=== PATIENT | male | born 1945 | race African-American/Black ===

== ENCOUNTER 2017-04-29 20:58 | Inpatient (IN) | payer BC ==
[~2017-04-29] VITALS: Ht 177.8 cm; Wt 76.2 kg
[2017-04-29 21:10] VITALS: BP 142/67
--- NOTE | 2017-04-29 21:24 | Emergency Room Report ---
History of Present Illness General Chief Complaint: Fever Source: Patient, Medical Record Present Illness HPI Patient lives at an assisted living facility and was found to be hypoxic Patient reports that he feels dehydrated and feels that he's having chills Denies any chest pain as any back or flank pain Patient initially denies feeling short of breath Denies any recent vomiting or diarrhea Patient is here with a remelter who reports of the patient was doing well prior to the low oxygen finding Allergies: Coded Allergies: IODINE (Verified Allergy, Unknown, 04/29/17) PENICILLINS (Verified Allergy, Unknown, 04/29/17) Patient History Past Medical History: see triage record Pertinent Family History: none Reviewed Nursing Documentation: PMH: Agreed, PSxH: Agreed Nursing Documentation-PMH Past Medical History: No History, Except For Hx Cardiac Problems: Yes - afib, DVT Hx Cerebrovascular Accident: Yes Review of Systems All Other Systems: negative except mentioned in HPI Physical Exam Vital Signs Date Time Temp Pulse Resp B/P Pulse Ox O2 Delivery O2 Flow Rate FiO2 04/29/17 20:56 99.7 91 20 139/81 95 Nasal Cannula 4.0 Sp02 EP Interpretation: reviewed, normal General Appearance: no apparent distress Head: normocephalic, atraumatic Eyes: bilateral eye EOMI, bilateral eye PERRL ENT: hearing grossly normal, normal pharynx, TMs + canals normal, uvula midline Neck: full range of motion, supple, no meningismus, no bony tend Respiratory: no rhonchi, no respiratory distress, no retraction, no accessory muscle use, crackles - in both lower lobes Cardiovascular #1: normal peripheral pulses, no gallop, no JVD, no murmur, irregularly irregular Gastrointestinal: normal bowel sounds, non tender, soft, no mass, no organomegaly, non-distended, no guarding, no hernia, no pulsatile mass, no rebound Genitourinary: no CVA tenderness Musculoskeletal: normal inspection Neurologic: oriented x3, responsive, shirt folder III-XII nml as tested, motor strength/ tone normal, sensory intact Psychiatric: mood/affect normal Skin: palpation normal, other - Three out of four pitting edema both lower extremity Lymphatic: normal inspection, no adenopathy Medical Decision Making Diagnostic Impression: Primary Impression: CHF (congestive heart failure) Additional Impression: Dyspnea ER Course Patient is a fairly complex patient with multiple differential to consideration including but not limited to cardiac cardiopulmonary and vascular emergencies Given the patient's clinical evaluation diuretics were provided chest x-ray also shows pulmonary congestion difficult to evaluate possible infiltrate patient was also provided prostration antibiotic at this time continue to do better however does require low oxygenation to keep appropriate saturation At this time requires further inpatient care Labs Test 04/29/17 21:35 White Blood Count 8.6 K/UL (4.8-10.8) Red Blood Count 3.39 M/UL (4.70-6.10) Hemoglobin 10.1 G/DL (14.2-18.0) Hematocrit 31.5 % (42.0-52.0) Mean Corpuscular Volume 93 FL (80-99) Mean Corpuscular Hemoglobin 29.7 PG (27.0-31.0) Mean Corpuscular Hemoglobin Concent 32.0 G/DL (32.0-36.0) Red Cell Distribution Width 16.0 % (11.6-14.8) Platelet Count 250 K/UL (150-450) Mean Platelet Volume 5.4 FL (6.5-10.1) Neutrophils (%) (Auto) 60.0 % (45.0-75.0) Lymphocytes (%) (Auto) 12.0 % (20.0-45.0) Monocytes (%) (Auto) 17.9 % (1.0-10.0) Eosinophils (%) (Auto) 6.4 % (0.0-3.0) Basophils (%) (Auto) 3.7 % (0.0-2.0) Urine Color Pale yellow Urine Appearance Clear Urine pH 5 (4.5-8.0) Urine Specific [place] 1.020 (1.005-1.035) Urine Protein 2+ (NEGATIVE) Urine Glucose (UA) Negative (NEGATIVE) Urine Ketones Negative (NEGATIVE) Urine Occult Blood 4+ (NEGATIVE) Urine Nitrite Negative (NEGATIVE) Urine Bilirubin Negative (NEGATIVE) Urine Urobilinogen Normal MG/DL (0.0-1.0) Urine Leukocyte Esterase 2+ (NEGATIVE) Urine RBC 5-10 /HPF (0 - 0) Urine WBC 5-10 /HPF (0 - 0) Urine Squamous Epithelial Cells None /LPF (NONE/OCC) Urine Amorphous Sediment Few /LPF (NONE) Urine Bacteria Moderate /HPF (NONE) Urine Yeast Few /HPF (NONE) Sodium Level 139 mEQ/L (135-145) Potassium Level 5.1 mEQ/L (3.4-4.9) Chloride Level 97 mEQ/L (98-107) Carbon Dioxide Level 28 mEQ/L (20-30) Anion Gap 14 (5-15) Blood Urea Nitrogen 15 mg/dL (7-23) Creatinine 0.8 mg/dL (0.7-1.2) Estimat Glomerular Filtration Rate mL/min (>60) Glucose Level 127 mg/dL (74-106) Lactic Acid Level 1.30 mmol/L (0.66-2.22) Calcium Level 9.4 mg/dL (8.6-10.2) Total Bilirubin 0.6 mg/dL (0.0-1.2) Aspartate Amino Transf (AST/SGOT) 22 U/L (5-40) Alanine Aminotransferase (ALT/SGPT) 21 U/L (3-41) Alkaline Phosphatase 108 U/L (40-129) Total Creatine Kinase 36 U/L (38-174) Creatine Kinase MB 2.6 ng/mL (< 6.7) Creatine Kinase MB Relative Index 7.2 Troponin I < 0.30 ng/mL (<=0.30) Pro-B-Type Natriuretic Peptide 7536 pg/mL (0-125) Total Protein 6.7 g/dL (6.6-8.7) Albumin 3.4 g/dL (3.5-5.2) Globulin 3.3 g/dL Albumin/Globulin Ratio 1.0 (1.0-2.7) Lipase 31 U/L (< 60) EKG Diagnostic Results Rate: normal Rhythm: other - a fib ST Segments: other - Nonspecific ST and T-wave changes Rhythm Strip Diag. Results EP Interpretation: yes Rate: 80 Rhythm: no PVC's, no ectopy, other - afib Chest X-Ray Diagnostic Results Chest X-Ray Ordered: Yes # of Views/Limited/Complete: 1 View Interpretation: no consolidation, no pneumothorax, other - Cardiomegaly, bilateral pulmonary congestion pacemaker Indication: Shortness of Breath Impression: Other - pulmonary congestion Date Electronically Signed: Apr 29, 2017 Time Electronically Signed: 21:50 Interpreting ER Physician: Dr davidson Last Vital Signs Date Time Temp Pulse Resp B/P Pulse Ox O2 Delivery O2 Flow Rate FiO2 04/29/17 20:56 99.7 91 20 139/81 95 Nasal Cannula 4.0 Status: improved Disposition: ADMITTED INPATIENT Condition: Serious JUSTIN DAVIDSON D.O. Apr 29, 2017 21:24
[2017-04-29 22:13] LABS: APPEARANCE,URINE CLEAR; BASOPHILS % (AUTO) 3.7 % (0.0-2.0); EOSINOPHILS % (AUTO) 6.4 % (0.0-3.0); KETONES,URINE NEGATIVE (NEGATIVE); LEUKOCYTE ESTERASE ,URINE 2+ (NEGATIVE); MEAN CORPUSCULAR HEMOGLOBIN 29.7 PG (27.0-31.0); MEAN CORPUSCULAR VOLUME 93 FL (80-99); MEAN PLATELET VOLUME 5.4 FL (6.5-10.1); MONOCYTES % (AUTO) 17.9 % (1.0-10.0); NITRITE,URINE NEGATIVE (NEGATIVE); PH,URINE 5 (4.5-8.0); PLATELET COUNT 250 K/UL (150-450); PROTEIN,URINE 2+ (NEGATIVE); RED BLOOD COUNT 3.39 M/UL (4.70-6.10); UROBILINOGEN,URINE NORMAL MG/DL (0.0-1.0); WHITE BLOOD COUNT 8.6 K/UL (4.8-10.8)
[2017-04-29 22:27] LABS: AMORPHOUS SEDIMENT,UR FEW /LPF; BACTERIA,URINE MODERATE /HPF; YEAST,URINE FEW /HPF
[2017-04-29 22:30] LABS: ALANINE AMINOTRANSFERASE 21 U/L (3-41); ANION GAP 14 (5-15); ASPARTATE AMINO TRANSFERASE 22 U/L (5-40); CALCIUM 9.4 mg/dL (8.6-10.2); CARBON DIOXIDE 28 mEQ/L (20-30); CHLORIDE 97 mEQ/L (98-107); CREATININE 0.8 mg/dL (0.7-1.2); HEMOLYSIS 63; LIPASE 31 U/L (< 60); POTASSIUM 5.1 mEQ/L (3.4-4.9); SODIUM 139 mEQ/L (135-145); TOTAL PROTEIN 6.7 g/dL (6.6-8.7); TROPONIN I < 0.30 ng/mL (<=0.30)
[2017-04-29] MEDS ORDERED: Promethazine/Codeine 5ml UD ORAL PRN (22:45)
[2017-04-29] MEDS ORDERED: Mylanta II UD 30ml ORAL PRN (22:45)
[2017-04-29] MEDS ORDERED: Nitroglycerin Subl 0.4mg tab (Bottle Of 25) SL PRN (22:45)
[2017-04-29] MEDS ORDERED: Miralax 17gm pkt ORAL PRN (22:45)
[2017-04-29] MEDS ORDERED: SPIRIVA18 MCG INH (22:46)
[2017-04-29] MEDS ORDERED: LEVOTHYROXINE150 MCG ORAL (22:46)
[2017-04-29] MEDS ORDERED: MILK OF MA2400 MG/10 ORAL (22:46)
[2017-04-29] MEDS ORDERED: ELIQUIS5 MG PO (22:46)
[2017-04-29] MEDS ORDERED: ZESTRIL10 M1 ORAL (22:46)
[2017-04-29] MEDS ORDERED: TYLENOL EXTRA500 MG ORAL (22:46)
[2017-04-29] MEDS ORDERED: DUONEB 0.5-3(2.53 ML HHN (22:46)
[2017-04-29] MEDS ORDERED: FLOMAX0.4 MG ORAL (22:46)
[2017-04-29] MEDS ORDERED: ATORVASTATIN CA80 MG ORAL (22:46)
[2017-04-29] MEDS ORDERED: CARVEDILOL6.25 MG ORAL (22:46)
[2017-04-29] MEDS ORDERED: SENOKOT8.6 MG PO (22:46)
[2017-04-29] MEDS ORDERED: ZYPREXA2.5 MG ORAL (22:46)
[2017-04-29] MEDS ORDERED: BETHANECHOL CHL25 MG ORAL (22:46)
[2017-04-29] MEDS ORDERED: PROSCAR5 MG ORAL (22:46)
[2017-04-29] MEDS ORDERED: QUETIAPINE FUMA50 MG ORAL (22:46)
[2017-04-29] MEDS ORDERED: IBUPROFEN600 MG ORAL (22:46)
[2017-04-29] MEDS ORDERED: DIGOXIN125 MCG ORAL (22:46)
[2017-04-29 23:00] LABS: CKMB 2.6 ng/mL (< 6.7)
[2017-04-29 23:10] VITALS: BP 129/58
[2017-04-30] VITALS (8 sets, daily range): BP systolic 99–135; BP diastolic 45–81
[2017-04-30] MEDS: Vancomycin 1.5 GM in D5W 325 ML IVPB SCH ×2 (02:31→16:20)
[2017-04-30] MEDS: Aztreonam Inj 1 GM in NS 55 ML IVPB SCH ×3 (06:35→22:32)
[2017-04-30 07:34] LABS: MEAN CORPUSCULAR HEMOGLOBIN 29.4 PG (27.0-31.0); MEAN CORPUSCULAR HGB CONC 32.2 G/DL (32.0-36.0); MEAN CORPUSCULAR VOLUME 91 FL (80-99); MEAN PLATELET VOLUME 6.1 FL (6.5-10.1); PLATELET COUNT 263 K/UL (150-450); RED BLOOD COUNT 3.23 M/UL (4.70-6.10); RED CELL DISTRIBUTION WIDTH 16.3 % (11.6-14.8); WHITE BLOOD COUNT 8.4 K/UL (4.8-10.8)
[2017-04-30 07:46] LABS: ALANINE AMINOTRANSFERASE 16 U/L (3-41); ALBUMIN/GLOBULIN RATIO 1.1 (1.0-2.7); ANION GAP 10 (5-15); ASPARTATE AMINO TRANSFERASE 15 U/L (5-40); CALCIUM 9.2 mg/dL (8.6-10.2); CARBON DIOXIDE 32 mEQ/L (20-30); CHLORIDE 97 mEQ/L (98-107); CREATININE 0.8 mg/dL (0.7-1.2); HEMOLYSIS 0; PHOSPHORUS 4.6 mg/dL (2.5-4.8); POTASSIUM 3.8 mEQ/L (3.4-4.9); SODIUM 139 mEQ/L (135-145); TOTAL PROTEIN 6.1 g/dL (6.6-8.7)
[2017-04-30 08:58] LABS: ANISOCYTOSIS 1+; BAND NEUTROPHILS % (MANUAL) 0 % (0-8); BASOPHILS % (MANUAL) 0 % (0-2); EOSINOPHILS % (MANUAL) 9 % (0-3); HYPOCHROMASIA 2+; LYMPHOCYTES % (MANUAL) 12 % (20-45); NEUTROPHILS % (MANUAL) 64 % (45-75); PLATELET ESTIMATE ADEQUATE; PLATELET MORPHOLOGY NORMAL; TOTAL CELLS COUNTED 100
[2017-04-30] MEDS ORDERED: Heparin 5000 units/ml inj SUBQ SCH (09:00)
--- NOTE | 2017-04-30 12:00 | Diagnostic Imaging Report ---
Indications: Chest pain Technique: Portable AP chest Findings: Comparison: None Cardiac silhouette upper limits of normal in size. Suggestion of mild pulmonary vascular redistribution. Interstitial markings mildly increased throughout both lungs. No pleural abnormality detected. Left chest wall pacemaker. Focal contour deformity lateral aspect left fifth rib. Cephalad subluxation right humerus narrowing the subacromial space. Right glenohumeral joint narrowed with marginal osteophyte formation. IMPRESSION: Bilateral interstitial disease, nonspecific, acuity indeterminate. An element of pulmonary edema in the setting of congestive heart failure must be considered. Correlate clinically. Borderline cardiomegaly with pacemaker Left fifth rib contour deformity likely chronic posttraumatic Right glenohumeral degenerative arthropathy Chronic insufficiency right rotator cuff
--- NOTE | 2017-04-30 12:32 | History and Physical ---
History of Present Illness General Date patient seen: Apr 30, 2017 Reason for Hospitalization: Fever Present Illness HPI 71 year old male with hx of CAD, pacemaker, CVA, dementia, Asthma living at an assisted living facility was found to be hypoxic. He has been coughing and had fever. His pulse oximeter was low at assisted living and he was brought in for further evaluation. He was found to have sepsis and hypoxemia and admitted to telemetry for further evaluation. Allergies: Coded Allergies: IODINE (Verified Allergy, Unknown, 04/29/17) PENICILLINS (Verified Allergy, Unknown, 04/29/17) Medication History Scheduled Atorvastatin Calcium* (Lipitor*), 80 MG ORAL BEDTIME, (Reported) Bethanechol Chl* (Bethanechol Chloride*), 25 MG ORAL THREE TIMES A DAY, ( Reported) Carvedilol* (Carvedilol*), 6.25 MG ORAL EVERY 12 HOURS, (Reported) Digoxin* (Digoxin*), 125 MCG ORAL DAILY, (Reported) Finasteride* (Proscar*), 5 MG ORAL DAILY, (Reported) Ibuprofen* (Motrin*), 400 MG ORAL FOUR TIMES A DAY, (Reported) Levothyroxine Sodium* (Levothyroxine Sodium*), 150 MCG ORAL DAILY, (Reported) Lisinopril* (Zestril*), 10 MG ORAL DAILY, (Reported) Magnesium Hydroxide* (Milk Of Magnesia*), 30 ML ORAL DAILY, (Reported) Olanzapine* (Zyprexa*), 2.5 MG ORAL DAILY, (Reported) Quetiapine Fumarate* (Quetiapine Fumarate*), 25 MG ORAL DAILY, (Reported) Tamsulosin HCl (Flomax), 0.4 MG ORAL DAILY, (Reported) Tiotropium [place]* (Spiriva*), 1 PUFF INH DAILY, (Reported) Scheduled PRN Acetaminophen* (Tylenol Extra Strength*), 500 MG ORAL Q6H PRN for Mild Pain/ Temp > 100.5, (Reported) Miscellaneous Medications Apixaban (Eliquis), 5 MG PO, (Reported) Ipratropium/Albuterol Sulfate (DuoNeb 0.5-3(2.5)mg/3ml), 3 ML HHN, (Reported) Sennosides (Senokot), 8.6 MG PO, (Reported) Patient History Healthcare decision maker Resuscitation status Full Code Advanced Directive on File Yes Past Medical/Surgical History Past Medical/Surgical History: (1) Pacemaker (2) BPH (benign prostatic hyperplasia) (3) CAD (coronary artery disease) (4) Cardiomyopathy (5) CHF (congestive heart failure) Review of Systems Constitutional: Reports: fever Respiratory: Reports: cough, shortness of breath All Other Systems: negative except mentioned in HPI Physical Exam General Appearance: WD/WN Lines, tubes and drains: peripheral HEENT: normocephalic, atraumatic Neck: non-tender, normal alignment Respiratory/Chest: chest wall non-tender, lungs clear Cardiovascular/Chest: normal peripheral pulses Abdomen: normal bowel sounds Genitourinary/Rectal: normal genital exam Extremities: trace edema Last 24 Hour Vital Signs Date Time Temp Pulse Resp B/P Pulse Ox O2 Delivery O2 Flow Rate FiO2 04/30/17 11:45 98.1 85 20 135/81 96 Nasal Cannula 4.0 04/30/17 08:30 97.0 77 22 103/45 99 Nasal Cannula 4.0 04/30/17 08:00 76 04/30/17 07:54 95 Nasal Cannula 4.0 04/30/17 07:52 Nasal Cannula 4.0 04/30/17 07:48 69 22 Nasal Cannula 4.0 04/30/17 04:08 98.2 73 19 117/61 94 Nasal Cannula 4.0 04/30/17 04:00 87 04/30/17 01:26 80 04/30/17 01:21 97.9 71 19 128/58 96 Nasal Cannula 4.0 04/30/17 01:00 97.7 78 22 125/69 100 Room Air 4.0 04/30/17 01:00 99.9 78 22 125/69 99 Nasal Cannula 4.0 04/30/17 00:59 60 18 Room Air 04/29/17 23:10 99.9 79 24 129/58 99 Nasal Cannula 4.0 04/29/17 21:10 99.9 76 28 142/67 99 4.0 04/29/17 20:56 99.7 91 20 139/81 95 Nasal Cannula 4.0 Intake and Output 04/29/17 04/30/17 19:00 07:00 Intake Total 715.0 ml Output Total 900 ml Balance -185.0 ml Intake Oral 240 ml IV Total 475.0 ml Output Urine Total 900 ml # Voids 1 Laboratory Tests Test 04/29/17 21:35 04/30/17 06:30 White Blood Count 8.6 K/UL (4.8-10.8) 8.4 K/UL (4.8-10.8) Red Blood Count 3.39 M/UL (4.70-6.10) L 3.23 M/UL (4.70-6.10) L Hemoglobin 10.1 G/DL (14.2-18.0) L 9.5 G/DL (14.2-18.0) L Hematocrit 31.5 % (42.0-52.0) L 29.5 % (42.0-52.0) L Mean Corpuscular Volume 93 FL (80-99) 91 FL (80-99) Mean Corpuscular Hemoglobin 29.7 PG (27.0-31.0) 29.4 PG (27.0-31.0) Mean Corpuscular Hemoglobin Concent 32.0 G/DL (32.0-36.0) 32.2 G/DL (32.0-36.0) Red Cell Distribution Width 16.0 % (11.6-14.8) H 16.3 % (11.6-14.8) H Platelet Count 250 K/UL (150-450) 263 K/UL (150-450) Mean Platelet Volume 5.4 FL (6.5-10.1) L 6.1 FL (6.5-10.1) L Neutrophils (%) (Auto) 60.0 % (45.0-75.0) % (45.0-75.0) Lymphocytes (%) (Auto) 12.0 % (20.0-45.0) L % (20.0-45.0) Monocytes (%) (Auto) 17.9 % (1.0-10.0) H % (1.0-10.0) Eosinophils (%) (Auto) 6.4 % (0.0-3.0) H % (0.0-3.0) Basophils (%) (Auto) 3.7 % (0.0-2.0) H % (0.0-2.0) Urine Color Pale yellow Urine Appearance Clear Urine pH 5 (4.5-8.0) Urine Specific [place] 1.020 (1.005-1.035) Urine Protein 2+ (NEGATIVE) H Urine Glucose (UA) Negative (NEGATIVE) Urine Ketones Negative (NEGATIVE) Urine Occult Blood 4+ (NEGATIVE) H Urine Nitrite Negative (NEGATIVE) Urine Bilirubin Negative (NEGATIVE) Urine Urobilinogen Normal MG/DL (0.0-1.0) Urine Leukocyte Esterase 2+ (NEGATIVE) H Urine RBC 5-10 /HPF (0 - 0) H Urine WBC 5-10 /HPF (0 - 0) H Urine Squamous Epithelial Cells None /LPF (NONE/OCC) Urine Amorphous Sediment Few /LPF (NONE) H Urine Bacteria Moderate /HPF (NONE) H Urine Yeast Few /HPF (NONE) H Sodium Level 139 mEQ/L (135-145) 139 mEQ/L (135-145) Potassium Level 5.1 mEQ/L (3.4-4.9) H 3.8 mEQ/L (3.4-4.9) Chloride Level 97 mEQ/L (98-107) L 97 mEQ/L (98-107) L Carbon Dioxide Level 28 mEQ/L (20-30) 32 mEQ/L (20-30) H Anion Gap 14 (5-15) 10 (5-15) Blood Urea Nitrogen 15 mg/dL (7-23) 15 mg/dL (7-23) Creatinine 0.8 mg/dL (0.7-1.2) 0.8 mg/dL (0.7-1.2) Estimat Glomerular Filtration Rate mL/min (>60) mL/min (>60) Glucose Level 127 mg/dL (74-106) H 117 mg/dL (74-106) H Lactic Acid Level 1.30 mmol/L (0.66-2.22) Calcium Level 9.4 mg/dL (8.6-10.2) 9.2 mg/dL (8.6-10.2) Total Bilirubin 0.6 mg/dL (0.0-1.2) 0.6 mg/dL (0.0-1.2) Aspartate Amino Transf (AST/SGOT) 22 U/L (5-40) 15 U/L (5-40) Alanine Aminotransferase (ALT/SGPT) 21 U/L (3-41) 16 U/L (3-41) Alkaline Phosphatase 108 U/L (40-129) 97 U/L (40-129) Total Creatine Kinase 36 U/L (38-174) L Creatine Kinase MB 2.6 ng/mL (< 6.7) Creatine Kinase MB Relative Index 7.2 Troponin I < 0.30 ng/mL (<=0.30) Pro-B-Type Natriuretic Peptide 7536 pg/mL (0-125) H 6502 pg/mL (0-125) H Total Protein 6.7 g/dL (6.6-8.7) 6.1 g/dL (6.6-8.7) L Albumin 3.4 g/dL (3.5-5.2) L 3.3 g/dL (3.5-5.2) L Globulin 3.3 g/dL 2.8 g/dL Albumin/Globulin Ratio 1.0 (1.0-2.7) 1.1 (1.0-2.7) Lipase 31 U/L (< 60) Urine Legionella Antigen Pending Differential Total Cells Counted 100 Neutrophils % (Manual) 64 % (45-75) Lymphocytes % (Manual) 12 % (20-45) L Monocytes % (Manual) 15 % (1-10) H Eosinophils % (Manual) 9 % (0-3) H Basophils % (Manual) 0 % (0-2) Band Neutrophils 0 % (0-8) Platelet Estimate Adequate Platelet Morphology Normal Hypochromasia 2+ Anisocytosis 1+ Phosphorus Level 4.6 mg/dL (2.5-4.8) Microbiology Date/Time Source Procedure Growth Status 04/30/17 01:20 Wrist Right Gram Stain - Final Resulted 04/30/17 01:20 Wrist Right Wound Culture Pending Resulted Height (Feet): 5 Height (Inches): 10.00 Weight (Pounds): 176 Medications Current Medications Medications (Trade) Dose Ordered Sig/Lakesha Route PRN Reason Start Time Stop Time Status Last Admin Dose Admin Acetaminophen (Tylenol) 650 mg Q4H PRN ORAL fever 04/29/17 22:45 05/29/17 22:44 Al Hydroxide/Mg Hydroxide (Mylanta II) 30 ml Q6H PRN ORAL dyspepsia 04/29/17 22:45 05/29/17 22:44 Albuterol/ Ipratropium (DuoNeb 0.5-3(2.5)mg/3ml) 3 ml EVERY 4 HOURS PRN HHN Shortness of Breath 04/29/17 22:45 05/04/17 22:44 Apixaban (Eliquis) 2.5 mg BID ORAL 04/30/17 18:00 05/30/17 17:59 UNV Atorvastatin Calcium (Lipitor) 80 mg BEDTIME ORAL 04/30/17 21:00 05/30/17 20:59 UNV Aztreonam/Sodium Chloride (Azactam/Sodium Chloride) 55 ml @ 110 mls/hr EVERY 8 HOURS IVPB 04/30/17 06:00 05/07/17 05:59 04/30/17 06:35 Carvedilol (Coreg) 6.25 mg EVERY 12 HOURS ORAL 04/30/17 21:00 05/30/17 20:59 UNV Digoxin (Lanoxin) 0.125 mg DAILY ORAL 05/01/17 09:00 05/31/17 08:59 UNV Finasteride (Proscar) 5 mg DAILY ORAL 05/01/17 09:00 05/31/17 08:59 UNV Levothyroxine Sodium (Synthroid) 150 mcg DAILY ORAL 05/01/17 09:00 05/31/17 08:59 UNV Lisinopril (Prinivil) 10 mg DAILY ORAL 05/01/17 09:00 05/31/17 08:59 UNV Nitroglycerin (Ntg) 0.4 mg Q5M PRN SL Prn Chest Pain 04/29/17 22:45 05/29/17 22:44 Olanzapine (ZyPREXA) 2.5 mg DAILY ORAL 05/01/17 09:00 05/31/17 08:59 UNV Ondansetron HCl (Zofran) 4 mg Q6H PRN IVP Nausea & Vomiting 04/29/17 22:45 05/29/17 22:44 Polyethylene Glycol (Miralax) 17 gm DAILYPRN PRN ORAL Constipation 04/29/17 22:45 05/29/17 22:44 Promethazine HCl/ Codeine (Phenergan with Codeine) 5 ml Q4H PRN ORAL For Cough 04/29/17 22:45 05/29/17 22:44 Quetiapine Fumarate (SEROquel) 25 mg DAILY ORAL 05/01/17 09:00 05/31/17 08:59 UNV Sennosides (Senokot) 8.6 mg DAILY ORAL 05/01/17 09:00 05/31/17 08:59 UNV Tamsulosin HCl (Flomax) 0.4 mg DAILY ORAL 05/01/17 09:00 05/31/17 08:59 UNV Temazepam 15 mg 15 mg HSPRN PRN ORAL Insomnia 04/29/17 22:45 05/06/17 22:44 Vancomycin HCl 1 ea 1 ea DAILY PRN MISC Per rx protocol 04/29/17 22:45 05/29/17 22:44 Vancomycin HCl/ Dextrose (Vancomycin/D5W) 325 ml @ 162.5 mls/ hr Q12H IVPB 04/30/17 02:00 05/05/17 01:59 04/30/17 02:31 Assessment/Plan Problem List: (1) Sepsis ICD Codes: A41.9 - Sepsis, unspecified organism SNOMED: 08454036 (2) Acute encephalopathy ICD Codes: G93.40 - Encephalopathy, unspecified SNOMED: 7848017 (3) Aspiration pneumonia ICD Codes: J69.0 - Pneumonitis due to inhalation of food and vomit SNOMED: 633741808 (4) Cardiomyopathy ICD Codes: I42.9 - Cardiomyopathy, unspecified SNOMED: 42286350 (5) CAD (coronary artery disease) ICD Codes: I25.10 - Atherosclerotic heart disease of [place] coronary artery without angina pectoris SNOMED: 54045089 (6) CHF (congestive heart failure) ICD Codes: I50.9 - Heart failure, unspecified SNOMED: 94584058 (7) BPH (benign prostatic hyperplasia) ICD Codes: N40.0 - Benign prostatic hyperplasia without lower urinary tract symptoms SNOMED: 589724970, 795187898 (8) Pacemaker ICD Codes: Z95.0 - Presence of cardiac pacemaker SNOMED: 687664729, 399777095 (9) Anemia ICD Codes: D64.9 - Anemia, unspecified SNOMED: 587017630 (10) Dementia ICD Codes: F03.90 - Unspecified dementia without behavioral disturbance SNOMED: 63522342 Assessment/Plan check sputum, culutres iv abx. PCN allergy f/fu labs anemia w/u cardio to see doppler of legs wound care psych evaluation MELISSA ANDERSON Apr 30, 2017 12:32
--- NOTE | 2017-04-30 13:00 | Consultation ---
Consult Note Consult Note [id number] JEFFREY GERARD M.D. Apr 30, 2017 13:00
[2017-04-30] MEDS: Digoxin 0.125mg tab ORAL SCH (14:47)
[2017-04-30] MEDS ORDERED: NS 55ml IV ONE (15:55)
--- NOTE | 2017-04-30 16:27 | Cardiology Progress Note ---
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% (9% scar , 9% viable ischemic) extensive ca clcifiaction hs to tobacco use do afib perm on anticoagu with eliquis dementia hx iodien pen allergy copd s/p recent sepsis diurtic afterlaod prelaod reduction anticoagualtion with eliqauis dose may need to be adjsuted nwo with noral renal fucntion previoulsy not had cath for severl reason one of [facility] was renal insuf now with normal renal fucntion may need to reconsider near [facility] [id number] Objective Last 24 Hour Vital Signs Date Time Temp Pulse Resp B/P Pulse Ox O2 Delivery O2 Flow Rate FiO2 04/30/17 15:40 97.3 69 20 99/50 97 Nasal Cannula 4.0 04/30/17 14:47 85 04/30/17 12:00 87 04/30/17 11:45 98.1 85 20 135/81 96 Nasal Cannula 4.0 04/30/17 08:30 97.0 77 22 103/45 99 Nasal Cannula 4.0 04/30/17 08:00 76 04/30/17 07:54 95 Nasal Cannula 4.0 04/30/17 07:52 Nasal Cannula 4.0 04/30/17 07:48 69 22 Nasal Cannula 4.0 04/30/17 04:08 98.2 73 19 117/61 94 Nasal Cannula 4.0 04/30/17 04:00 87 04/30/17 01:26 80 04/30/17 01:21 97.9 71 19 128/58 96 Nasal Cannula 4.0 04/30/17 01:00 97.7 78 22 125/69 100 Room Air 4.0 04/30/17 01:00 99.9 78 22 125/69 99 Nasal Cannula 4.0 04/30/17 00:59 60 18 Room Air 04/29/17 23:10 99.9 79 24 129/58 99 Nasal Cannula 4.0 04/29/17 21:10 99.9 76 28 142/67 99 4.0 04/29/17 20:56 99.7 91 20 139/81 95 Nasal Cannula 4.0 Intake and Output 04/29/17 04/30/17 19:00 07:00 Intake Total 715.0 ml Output Total 900 ml Balance -185.0 ml Intake Oral 240 ml IV Total 475.0 ml Output Urine Total 900 ml # Voids 1 Laboratory Tests Test 04/29/17 21:35 04/30/17 06:30 White Blood Count 8.6 K/UL (4.8-10.8) 8.4 K/UL (4.8-10.8) Red Blood Count 3.39 M/UL (4.70-6.10) L 3.23 M/UL (4.70-6.10) L Hemoglobin 10.1 G/DL (14.2-18.0) L 9.5 G/DL (14.2-18.0) L Hematocrit 31.5 % (42.0-52.0) L 29.5 % (42.0-52.0) L Mean Corpuscular Volume 93 FL (80-99) 91 FL (80-99) Mean Corpuscular Hemoglobin 29.7 PG (27.0-31.0) 29.4 PG (27.0-31.0) Mean Corpuscular Hemoglobin Concent 32.0 G/DL (32.0-36.0) 32.2 G/DL (32.0-36.0) Red Cell Distribution Width 16.0 % (11.6-14.8) H 16.3 % (11.6-14.8) H Platelet Count 250 K/UL (150-450) 263 K/UL (150-450) Mean Platelet Volume 5.4 FL (6.5-10.1) L 6.1 FL (6.5-10.1) L Neutrophils (%) (Auto) 60.0 % (45.0-75.0) % (45.0-75.0) Lymphocytes (%) (Auto) 12.0 % (20.0-45.0) L % (20.0-45.0) Monocytes (%) (Auto) 17.9 % (1.0-10.0) H % (1.0-10.0) Eosinophils (%) (Auto) 6.4 % (0.0-3.0) H % (0.0-3.0) Basophils (%) (Auto) 3.7 % (0.0-2.0) H % (0.0-2.0) Urine Color Pale yellow Urine Appearance Clear Urine pH 5 (4.5-8.0) Urine Specific [place] 1.020 (1.005-1.035) Urine Protein 2+ (NEGATIVE) H Urine Glucose (UA) Negative (NEGATIVE) Urine Ketones Negative (NEGATIVE) Urine Occult Blood 4+ (NEGATIVE) H Urine Nitrite Negative (NEGATIVE) Urine Bilirubin Negative (NEGATIVE) Urine Urobilinogen Normal MG/DL (0.0-1.0) Urine Leukocyte Esterase 2+ (NEGATIVE) H Urine RBC 5-10 /HPF (0 - 0) H Urine WBC 5-10 /HPF (0 - 0) H Urine Squamous Epithelial Cells None /LPF (NONE/OCC) Urine Amorphous Sediment Few /LPF (NONE) H Urine Bacteria Moderate /HPF (NONE) H Urine Yeast Few /HPF (NONE) H Sodium Level 139 mEQ/L (135-145) 139 mEQ/L (135-145) Potassium Level 5.1 mEQ/L (3.4-4.9) H 3.8 mEQ/L (3.4-4.9) Chloride Level 97 mEQ/L (98-107) L 97 mEQ/L (98-107) L Carbon Dioxide Level 28 mEQ/L (20-30) 32 mEQ/L (20-30) H Anion Gap 14 (5-15) 10 (5-15) Blood Urea Nitrogen 15 mg/dL (7-23) 15 mg/dL (7-23) Creatinine 0.8 mg/dL (0.7-1.2) 0.8 mg/dL (0.7-1.2) Estimat Glomerular Filtration Rate mL/min (>60) mL/min (>60) Glucose Level 127 mg/dL (74-106) H 117 mg/dL (74-106) H Lactic Acid Level 1.30 mmol/L (0.66-2.22) Calcium Level 9.4 mg/dL (8.6-10.2) 9.2 mg/dL (8.6-10.2) Total Bilirubin 0.6 mg/dL (0.0-1.2) 0.6 mg/dL (0.0-1.2) Aspartate Amino Transf (AST/SGOT) 22 U/L (5-40) 15 U/L (5-40) Alanine Aminotransferase (ALT/SGPT) 21 U/L (3-41) 16 U/L (3-41) Alkaline Phosphatase 108 U/L (40-129) 97 U/L (40-129) Total Creatine Kinase 36 U/L (38-174) L Creatine Kinase MB 2.6 ng/mL (< 6.7) Creatine Kinase MB Relative Index 7.2 Troponin I < 0.30 ng/mL (<=0.30) Pro-B-Type Natriuretic Peptide 7536 pg/mL (0-125) H 6502 pg/mL (0-125) H Total Protein 6.7 g/dL (6.6-8.7) 6.1 g/dL (6.6-8.7) L Albumin 3.4 g/dL (3.5-5.2) L 3.3 g/dL (3.5-5.2) L Globulin 3.3 g/dL 2.8 g/dL Albumin/Globulin Ratio 1.0 (1.0-2.7) 1.1 (1.0-2.7) Lipase 31 U/L (< 60) Urine Legionella Antigen Pending Differential Total Cells Counted 100 Neutrophils % (Manual) 64 % (45-75) Lymphocytes % (Manual) 12 % (20-45) L Monocytes % (Manual) 15 % (1-10) H Eosinophils % (Manual) 9 % (0-3) H Basophils % (Manual) 0 % (0-2) Band Neutrophils 0 % (0-8) Platelet Estimate Adequate Platelet Morphology Normal Hypochromasia 2+ Anisocytosis 1+ Phosphorus Level 4.6 mg/dL (2.5-4.8) Microbiology Date/Time Source Procedure Growth Status 04/30/17 01:20 Wrist Right Gram Stain - Final Resulted 04/30/17 01:20 Wrist Right Wound Culture Pending Resulted JAMES WRIGHT 13, 2017 16:27
[2017-04-30] MEDS ORDERED: Eliquis 2.5mg tablet ORAL SCH (18:00)
--- NOTE | 2017-04-30 19:00 | Consultation ---
DATE OF CONSULTATION: 04/30/2017 CONSULTING PHYSICIAN: Todd Miller M.D REFERRING PHYSICIAN: Alden Alvarez M.D. REASON FOR CONSULTATION: Evaluation of the patient for sepsis, pneumonia, antibiotic management. HISTORY OF PRESENT ILLNESS: The patient is a 71-year-old male with multiple medical problems who is a poor historian overall was admitted to this medical center due to shortness of breath. The patient was admitted to [facility] recently and there the patient had urinary obstruction requiring Ashraf catheter placement. The patient has been admitted to this medical center for shortness of breath. The patient denies having significant cough; however, again the patient as mentioned not able to provide detailed information. PAST MEDICAL HISTORY: 1. History of CVA. 2. Dementia. 3. History of urinary obstruction. 4. History of Ashraf catheter placement, this about two weeks ago. ALLERGIES: Iodine and penicillin. FAMILY HISTORY: Unavailable. REVIEW OF SYSTEMS: Limited. Much information I was able to get as mentioned above. MEDICATIONS: IV aztreonam and vancomycin. The patient received one dose of Levaquin in the emergency room. PHYSICAL EXAMINATION: VITAL SIGNS: Temperature 98 degrees, blood pressure 135/85, pulse 86, and respiratory rate 18. HEENT: Mild pale conjunctivae. No icterus. NECK: No lymphadenopathy. CHEST: Coarse breathing sounds. HEART: S1 and S2. ABDOMEN: Soft and obese. It is nontender. EXTREMITIES: No cyanosis of the extremity. The patient has bilateral lower extremity cellulitis, mild to moderate. NEUROLOGIC: He is awake. LABORATORY DATA: White blood cells 8.4, hemoglobin 9.5, and platelets 265,000. UA shows 5 to 10 white blood cells, BUN 15, and creatinine 0.8. Liver function tests unremarkable. Wound culture is pending. Chest x-ray showed bilateral interstitial disease. Pulmonary edema. ASSESSMENT: The patient is a 71-year-old male with multiple medical problems as described above. Also, the patient has, 1. Bilateral lower extremity cellulitis. 2. Probable pneumonia. 3. Anemia. 4. Probable congestive heart failure. 5. Rule out urinary tract infection. PLAN: 1. We will continue the patient on aztreonam and vancomycin. 2. Monitor CBC. 3. Monitor BMP. 4. Monitor cultures, blood and urine. 5. Monitor chest x-ray. 6. Based on the patient's clinical course and labs, we will do further recommendations. Thank you, Dr. Alvarez, for allowing me to participate in the care of this patient. I will follow the patient with you during this hospitalization. Todd Miller M.D. DR: STEFFANY JOB#: [id number] CC:
[2017-04-30] MEDS: Atorvastatin 80mg tab ORAL SCH (20:35)
[2017-04-30] MEDS: Carvedilol 6.25mg Tab ORAL SCH (20:36)
[2017-04-30] MEDS: Eliquis 2.5mg tablet ORAL SCH (20:37)
--- NOTE | 2017-04-30 22:48 | Wound Care Consultation ---
Wound Assessment Wound Assessment : Wound Present on Admission: Yes New Wound: No Status Change of Wound: No Wound Location Body Site Modif: left, lower Wound Location Body Site: leg - and knee with scattered wounds with dry scab Wound Type: lesion-etiology unknown Tatyana Test: Does not Tatyana Percent of Wound Purple/Maroon: 100 Wound Drainage Amount: None Wound Drainage Odor: None/Absent Tissue Surrounding Wound: Intact Wound General Appearance: Reddened Wound Comment #1 Left lower leg and knee wounds with scab etiology unknown Recommendation -Local wound care with skin barrier film and cover with bordered gauze daily and PRN soiled/dislodged -Keep clean and dry -Turn and reposition -Offload both heels -Heel protector on both heels -Assess and f/u with SHAYY AVILA RN Apr 30, 2017 22:48
[2017-05-01] VITALS: BP 103/50
[2017-05-01] MEDS: Vancomycin 1.5 GM in D5W 325 ML IVPB SCH ×2 (02:00→15:32)
--- NOTE | 2017-05-01 03:15 | Consultation ---
DATE OF CONSULTATION: 04/30/2017 CONSULTING PHYSICIAN: Aditya Cole M.D. REFERRING PHYSICIAN: Alden Alvarez M.D. REASON FOR REFERRAL: Shortness of breath. HISTORY OF PRESENT ILLNESS: This is a 71-year-old gentleman with a history of multiple problems including congestive heart failure and cardiomyopathy with ejection fraction of 15% and atrial fibrillation, and was recently in hospital at [facility] with septic and cardiogenic shock. Hemodynamic support with Levophed and vasopressin. The patient was treated with antibiotics and eventually taken off vasopressors and an attempt was made with CT coronary angiography, but because of extensive coronary calcification, the patient eventually did not have a cardiac catheterization, but he had biventricular ICD placed by Dr. Murphy and was subsequently discharged. He comes in to the hospital because of shortness of breath that has been going on for a couple of days. He says that he uses two pillows. There is occasional PND. There is no orthopnea. There is no dizziness or lightheadedness on standing. No heart pounding or palpitations. He is actually not aware that he has a defibrillator placed. He thinks that one was supposed to be placed already. PAST MEDICAL HISTORY: Positive for history of pneumonia, acute respiratory failure status post intubation, immune responsive, congestive heart failure with ejection fraction of 22%, ischemic cardiomyopathy, chronic obstructive pulmonary disease, acute kidney disorder, hypothyroidism, atrial fibrillation on anticoagulation with Eliquis, non ST-elevation myocardial infarction, toxic metabolic encephalopathy, urinary retention, cardiorenal syndrome, hypercalcemia and dementia. MEDICATIONS: Prior to admission include Tylenol, bethanechol, Motrin, DuoNeb, milk of magnesia and Spiriva, although when he was at [facility] apparently he was getting Eliquis, lisinopril, milk of magnesia, Coreg, digoxin, vancomycin, DuoNeb, Zyprexa, Dulcolax, Senokot, Lipitor, Synthroid, Protonix as well as Aldactone 12.5 mg daily. SOCIAL HISTORY: Positive history of tobacco, which he quit sometime ago. He still smokes. He had 8 years ago history of alcohol intake and denies any drug use. He lives at a board and care, assisted living situation. ALLERGIES: Iodine, penicillin, and sulfa. REVIEW OF SYSTEMS: Gastrointestinal: Positive for constipation. Genitourinary: He has problem with urination. He had a Ashraf catheter put in, removed, and subsequently put in again. Pulmonary: He has been coughing and occasional wheezing. Constitutional: No fevers, chills, or night sweats. Neurologic: Negative. PHYSICAL EXAMINATION: GENERAL: Shows him to be an elderly gentleman, in no acute respiratory distress although he is with 34 degrees head of bed elevation. VITAL SIGNS: His blood pressure is 99/52 to 135/80, heart rate 69 to 85, temperature 97 to 98.1, and he was 99.9 yesterday. After being admitted to the hospital, his initial blood pressure was 139/81 when he first presented to the hospital. NECK: Supple. LUNGS: There are some expiratory wheezes and crackles heard at the bases. CARDIAC: Slightly irregular. No RV lifts, heaves, or thrills noted. ABDOMEN: Soft and nontender. Positive bowel sounds. EXTREMITIES: There is no evidence of edema and some erythema of the lower extremities. NEUROLOGIC: He is awake, alert, responsive, and does not appear to be in any respiratory distress. LABORATORY AND DIAGNOSTIC DATA: His white count 8.4, hemoglobin 9.5, and platelet count of 263,000. Sodium is 139, potassium 3.8, chloride 97, bicarbonate 32, BUN 15, creatinine 0.8, and glucose of 117. ProBNP is down from 7500 to 6500 and his albumin is 3.3. His urinalysis with 5 to 10 WBCs. He had a chest x-ray performed in the emergency room which showed bilateral interstitial disease nonspecific indeterminate, pulmonary edema, congestive heart failure, borderline cardiomegaly, left deformity possibly posttraumatic, right glenohumeral degenerative joint disease, chronic of the rotator cuff. His EKG shows what appears to be atrial fibrillation, ventricular response is controlled in the 80s, pacing artifact is not noted. There is no evidence of atrial activity. ASSESSMENT: 1. Acute on chronic congestive heart failure exacerbation. 2. Cardiomyopathy. 3. History of atrial fibrillation, permanent. 4. Renal insufficiency history that now seems resolved. 5. Dementia. 6. Chronic obstructive pulmonary disease. PLAN: Dr. Alvarez, this patient was seen in cardiac consultation. The patient should be continued on course of diuretics as he had been administered in before. He should be back on some HAMIDA inhibitors and should be on full-dose anticoagulation in light of fact that his renal function is now normal. Continued on Coreg as well as digoxin and lisinopril as well. His diuretic should be adjusted gingerly on as needed basis to help with diureses as well as watch for development of renal insufficiency. I will follow the patient along with you. Aditya Cole M.D. DR: GHAZAL JOB#: [id number] CC:
[2017-05-01 03:58] VITALS: BP 115/54
[2017-05-01] MEDS: Aztreonam Inj 1 GM in NS 55 ML IVPB SCH ×3 (05:55→21:34)
[2017-05-01 08:00] VITALS: BP 105/62
[2017-05-01 08:01] LABS: MEAN CORPUSCULAR HEMOGLOBIN 29.1 PG (27.0-31.0); MEAN CORPUSCULAR HGB CONC 32.1 G/DL (32.0-36.0); MEAN CORPUSCULAR VOLUME 91 FL (80-99); PLATELET COUNT 284 K/UL (150-450); RED BLOOD COUNT 3.33 M/UL (4.70-6.10); RED CELL DISTRIBUTION WIDTH 15.7 % (11.6-14.8); WHITE BLOOD COUNT 6.5 K/UL (4.8-10.8)
[2017-05-01 08:15] LABS: INR 1.1 (0.9-1.1); PROTHROMBIN TIME 11.1 SEC (9.30-11.50)
[2017-05-01 08:22] LABS: ANION GAP 11 (5-15); CALCIUM 8.8 mg/dL (8.6-10.2); CARBON DIOXIDE 34 mEQ/L (20-30); CHLORIDE 96 mEQ/L (98-107); CREATININE 0.7 mg/dL (0.7-1.2); HEMOLYSIS 1; POTASSIUM 3.8 mEQ/L (3.4-4.9); SODIUM 141 mEQ/L (135-145)
[2017-05-01 08:25] LABS: DIGOXIN 0.5 ng/mL (0.5-2.0)
[2017-05-01] MEDS: Eliquis 2.5mg tablet ORAL SCH ×2 (08:53→21:34)
[2017-05-01] MEDS: Digoxin 0.125mg tab ORAL SCH (08:53)
[2017-05-01] MEDS: Tamsulosin 0.4mg cap ORAL SCH (08:53)
[2017-05-01] MEDS ORDERED: OLANZapine 2.5mg tab ORAL SCH (09:00)
[2017-05-01] MEDS: Lisinopril 10mg tab ORAL SCH (09:00)
[2017-05-01] MEDS: Carvedilol 6.25mg Tab ORAL SCH ×2 (09:00→21:35)
[2017-05-01 09:01] LABS: BASOPHILS % (MANUAL) 1 % (0-2); EOSINOPHILS % (MANUAL) 10 % (0-3); LYMPHOCYTES % (MANUAL) 19 % (20-45); NEUTROPHILS % (MANUAL) 54 % (45-75); TOTAL CELLS COUNTED 100
[2017-05-01 09:02] LABS: ANISOCYTOSIS 1+; BAND NEUTROPHILS % (MANUAL) 0 % (0-8); HYPOCHROMASIA 2+; PLATELET ESTIMATE ADEQUATE; PLATELET MORPHOLOGY NORMAL
--- NOTE | 2017-05-01 09:33 | Cardiology Report ---
APPROVED REPORT EXAM: Two-dimensional and M-mode echocardiogram with Doppler and color Doppler. INDICATION LV function M-Mode DIMENSIONS IVSd1.2 (0.7-1.1cm)Left Atrium (MM)4.8 (1.6-4.0cm) LVDd7.0 (3.5-5.6cm)Aortic Root3.9 (2.0-3.7cm) PWd0.9 (0.7-1.1cm)Aortic Cusp Exc.1.8 (1.5-2.0cm) LVDs5.9 (2.5-4.0cm) PWs1.2 cm Left ventricular enlargement. Global left ventricular hypokinesis. Left ventricular ejection fraction estimated to be 30-5 %. Mild left ventricular hypertrophy. Anterior Echo-free space, may be due to pericardial fat or effusion. Moderate left atrial enlargement. Mild right atrial enlargement. Right ventricular chamber size is within normal limits. Focal aortic valve sclerosis with adequate cusp excursion. Thickened mitral valve leaflets with normal excursion. Mitral annulus and aortic root calcification. Pulmonic valve not well visualized. Normal tricuspid valve structure. IVC dilated at 2.7 cm with slight physiologic collapse suggestive of increased RA pressure. Pacemaker wire present in the right side chambers. A color flow and spectral Doppler study was performed and revealed: Trace aortic regurgitation. Mild mitral regurgitation. Can not determine left ventricular diastolic function by mitral diastolic velocities due to atrial fibrillation. Mild tricuspid regurgitation. Tricuspid systolic velocities suggests peak right ventricular systolic pressure of 57 mmHg, consistent with moderate pulmonary hypertension.
[2017-05-01 09:43] LABS: ERYTHROCYTE SEDIMENTATION RATE 81 MM/HR (0-20)
[2017-05-01 10:05] LABS: PATH BLOOD SMEAR/OMC SENT TO PATHOLOGIST; RETICULOCYTE COUNT 4.2 % (0.0-2.0)
[2017-05-01] MEDS: DuoNeb 0.5-3(2.5)mg/3ml neb HHN PRN (10:21)
[2017-05-01 12:00] VITALS: BP 106/63
--- NOTE | 2017-05-01 12:10 | Pulmonology Progress Note ---
Assessment/Plan Problems: (1) Sepsis (2) Acute encephalopathy (3) Aspiration pneumonia (4) CAD (coronary artery disease) (5) CHF (congestive heart failure) (6) BPH (benign prostatic hyperplasia) (7) Pacemaker (8) Anemia (9) Dementia Assessment/Plan improving no fever check cultures continue abx taper down abx if cultures are negative f/u cardio recommendation echo noted, EF of 30% and pulmonary hypertension Subjective ROS Limited/Unobtainable: No Interval Events: feeling better Allergies: Coded Allergies: IODINE (Verified Allergy, Unknown, 04/29/17) PENICILLINS (Verified Allergy, Unknown, 04/29/17) Objective Last 24 Hour Vital Signs Date Time Temp Pulse Resp B/P Pulse Ox O2 Delivery O2 Flow Rate FiO2 05/01/17 10:28 74 20 Nasal Cannula 3.0 32 05/01/17 10:18 64 20 99 Nasal Cannula 3.0 32 05/01/17 09:00 105/62 05/01/17 09:00 69 105/62 05/01/17 08:53 69 05/01/17 08:00 97.9 69 18 105/62 94 Nasal Cannula 4.0 05/01/17 07:52 Nasal Cannula 3.0 32 05/01/17 07:51 99 Nasal Cannula 3.0 32 05/01/17 07:50 64 22 Nasal Cannula 3.0 32 05/01/17 04:00 74 05/01/17 03:58 97.9 72 21 115/54 97 Nasal Cannula 3.0 05/01/17 00:00 80 05/01/17 00:00 98.2 68 20 103/50 99 Nasal Cannula 2.0 04/30/17 20:36 76 108/57 04/30/17 20:00 82 04/30/17 20:00 97.8 18 108/57 97 Room Air 04/30/17 19:30 72 20 Nasal Cannula 3.0 32 04/30/17 19:30 Nasal Cannula 3.0 32 04/30/17 19:30 94 Nasal Cannula 3.0 32 04/30/17 16:00 86 04/30/17 15:40 97.3 69 20 99/50 97 Nasal Cannula 4.0 04/30/17 14:47 85 Intake and Output 04/30/17 05/01/17 19:00 07:00 Intake Total 360 ml 555.0 ml Output Total 850 ml 3280 ml Balance -490 ml -2725.0 ml Intake Oral 360 ml 120 ml IV Total 435.0 ml Output Urine Total 850 ml 3280 ml Objective General Appearance: WD/WN Lines, tubes and drains: peripheral HEENT: normocephalic, atraumatic Neck: non-tender, normal alignment Respiratory/Chest: chest wall non-tender, lungs clear Cardiovascular/Chest: normal peripheral pulses Abdomen: normal bowel sounds Genitourinary/Rectal: normal genital exam Extremities: trace edema General Appearance: WD/WN Microbiology Date/Time Source Procedure Growth Status 04/29/17 21:45 Blood Blood Culture - Preliminary NO GROWTH AFTER 24 HOURS Resulted 04/29/17 21:35 Blood Blood Culture - Preliminary NO GROWTH AFTER 24 HOURS Resulted 04/29/17 21:35 Urine,Clean Catch Urine Culture - Preliminary YEAST Resulted 04/30/17 01:20 Wrist Right Gram Stain - Final Resulted 04/30/17 01:20 Wrist Right Wound Culture - Preliminary NO GROWTH AFTER 24 HOURS Resulted Laboratory Tests 05/01/17 06:55: White Blood Count 6.5, Red Blood Count 3.33L, Hemoglobin 9.7L, Hematocrit 30.2L , Mean Corpuscular Volume 91, Mean Corpuscular Hemoglobin 29.1, Mean Corpuscular Hemoglobin Concent 32.1, Red Cell Distribution Width 15.7H, Platelet Count 284, Mean Platelet Volume 6.0L, Neutrophils (%) (Auto) , Lymphocytes (%) (Auto) , Monocytes (%) (Auto) , Eosinophils (%) (Auto) , Basophils (%) (Auto) , Differential Total Cells Counted 100, Neutrophils % ( Manual) 54, Lymphocytes % (Manual) 19L, Monocytes % (Manual) 16H, Eosinophils % (Manual) 10H, Basophils % (Manual) 1, Band Neutrophils 0, Platelet Estimate Adequate, Platelet Morphology Normal, Hypochromasia 2+, Anisocytosis 1+, Erythrocyte Sedimentation Rate 81H, Reticulocyte Count 4.2H, Prothrombin Time 11.1, Prothromb Time International Ratio 1.1, Activated Partial Thromboplast Time 30, Sodium Level 141, Potassium Level 3.8, Chloride Level 96L, Carbon Dioxide Level 34H, Anion Gap 11, Blood Urea Nitrogen 16, Creatinine 0.7, Estimat Glomerular Filtration Rate , Glucose Level 104, Calcium Level 8.8, Iron Level 43L, Total Iron Binding Capacity 230L, Percent Iron Saturation 19, Unsaturated Iron Binding 187, Lactate Dehydrogenase [Pending], Carcinoembryonic Antigen 3.5H, Vitamin B12 Level 316, Folate [Pending], Digoxin Level 0.5 Current Medications Medications (Trade) Dose Ordered Sig/Lakesha Route PRN Reason Start Time Stop Time Status Last Admin Dose Admin Acetaminophen (Tylenol) 650 mg Q4H PRN ORAL fever 04/29/17 22:45 05/29/17 22:44 04/30/17 22:40 Al Hydroxide/Mg Hydroxide (Mylanta II) 30 ml Q6H PRN ORAL dyspepsia 04/29/17 22:45 05/29/17 22:44 Albuterol/ Ipratropium (DuoNeb 0.5-3(2.5)mg/3ml) 3 ml EVERY 4 HOURS PRN HHN Shortness of Breath 04/29/17 22:45 05/04/17 22:44 05/01/17 10:21 Apixaban (Eliquis) 5 mg Q12HR ORAL 04/30/17 21:00 05/30/17 20:59 05/01/17 08:53 Atorvastatin Calcium (Lipitor) 80 mg BEDTIME ORAL 04/30/17 21:00 05/30/17 20:59 04/30/17 20:35 Aztreonam/Sodium Chloride (Azactam/Sodium Chloride) 55 ml @ 110 mls/hr EVERY 8 HOURS IVPB 04/30/17 06:00 05/07/17 05:59 05/01/17 05:55 Carvedilol (Coreg) 6.25 mg EVERY 12 HOURS ORAL 04/30/17 21:00 05/30/17 20:59 04/30/17 20:36 Digoxin (Lanoxin) 0.125 mg DAILY ORAL 04/30/17 13:00 05/30/17 12:59 05/01/17 08:53 Finasteride (Proscar) 5 mg DAILY ORAL 05/01/17 09:00 05/31/17 08:59 05/01/17 08:53 Levothyroxine Sodium (Synthroid) 150 mcg ACBREAKFAST ORAL 05/01/17 06:30 05/31/17 06:29 05/01/17 05:55 Lisinopril (Zestril) 10 mg DAILY ORAL 05/01/17 09:00 05/31/17 08:59 Nitroglycerin (Ntg) 0.4 mg Q5M PRN SL Prn Chest Pain 04/29/17 22:45 05/29/17 22:44 Olanzapine (ZyPREXA) 2.5 mg DAILY ORAL 05/01/17 09:00 05/31/17 08:59 05/01/17 08:53 Ondansetron HCl (Zofran) 4 mg Q6H PRN IVP Nausea & Vomiting 04/29/17 22:45 05/29/17 22:44 Polyethylene Glycol (Miralax) 17 gm DAILYPRN PRN ORAL Constipation 04/29/17 22:45 05/29/17 22:44 Promethazine HCl/ Codeine (Phenergan with Codeine) 5 ml Q4H PRN ORAL For Cough 04/29/17 22:45 05/29/17 22:44 Quetiapine Fumarate (SEROquel) 25 mg DAILY ORAL 05/01/17 09:00 05/31/17 08:59 05/01/17 08:53 Sennosides (Senokot) 8.6 mg DAILY ORAL 05/01/17 09:00 05/31/17 08:59 05/01/17 08:53 Tamsulosin HCl (Flomax) 0.4 mg DAILY ORAL 05/01/17 09:00 05/31/17 08:59 05/01/17 08:53 Temazepam 15 mg 15 mg HSPRN PRN ORAL Insomnia 04/29/17 22:45 05/06/17 22:44 Vancomycin HCl 1 ea 1 ea DAILY PRN MISC Per rx protocol 04/29/17 22:45 05/29/17 22:44 Vancomycin HCl/ Dextrose (Vancomycin/D5W) 325 ml @ 162.5 mls/ hr Q12H IVPB 04/30/17 02:00 05/05/17 01:59 05/01/17 02:00 MELISSA ANDERSON May 01, 2017 12:10
[2017-05-01 16:00] VITALS: BP 134/77
--- NOTE | 2017-05-01 18:54 | Cardiology Progress Note ---
Assessment/Plan Assessment/Plan achf acute systolic icm ef previously 23% (9% scar , 9% viable ischemic) extensive ca clcifiaction hs to tobacco use do afib perm on anticoagulin with eliquis dementia hx iodine pen allergy copd s/p recent sepsis diuretic will increase to bid for nwo keep on tele tel showed afib hopefully dc teell soon afterload preload reduction anticoagulation with eliqauis dose may need to be adjsuted now with normal renal function previously not had cath for several reason one of [facility] was renal insuf now with normal renal fucntion may need to reconsider near futuer Subjective Cardiovascular: Denies: chest pain, lightheadedness Respiratory: Reports: shortness of breath Gastrointestinal/Abdominal: Denies: abdominal pain Genitourinary: Denies: burning Objective Last 24 Hour Vital Signs Date Time Temp Pulse Resp B/P Pulse Ox O2 Delivery O2 Flow Rate FiO2 05/01/17 16:00 97.9 85 20 134/77 96 Nasal Cannula 4.0 05/01/17 12:00 97.8 63 20 106/63 97 Nasal Cannula 4.0 05/01/17 12:00 88 05/01/17 10:28 74 20 Nasal Cannula 3.0 32 05/01/17 10:18 64 20 99 Nasal Cannula 3.0 32 05/01/17 09:00 105/62 05/01/17 09:00 69 105/62 05/01/17 08:53 69 05/01/17 08:00 83 05/01/17 08:00 97.9 69 18 105/62 94 Nasal Cannula 4.0 05/01/17 07:52 Nasal Cannula 3.0 32 05/01/17 07:51 99 Nasal Cannula 3.0 32 05/01/17 07:50 64 22 Nasal Cannula 3.0 32 05/01/17 04:00 74 05/01/17 03:58 97.9 72 21 115/54 97 Nasal Cannula 3.0 05/01/17 00:00 80 05/01/17 00:00 98.2 68 20 103/50 99 Nasal Cannula 2.0 04/30/17 20:36 76 108/57 04/30/17 20:00 82 04/30/17 20:00 97.8 18 108/57 97 Room Air 04/30/17 19:30 72 20 Nasal Cannula 3.0 32 04/30/17 19:30 Nasal Cannula 3.0 32 04/30/17 19:30 94 Nasal Cannula 3.0 32 General Appearance: lethargic Neck: supple Cardiovascular: irregularly irregular Respiratory/Chest: crackles/rales Abdomen: normal bowel sounds, non tender, soft Extremities: moderate edema Intake and Output 04/30/17 05/01/17 19:00 07:00 Intake Total 360 ml 555.0 ml Output Total 850 ml 3280 ml Balance -490 ml -2725.0 ml Intake Oral 360 ml 120 ml IV Total 435.0 ml Output Urine Total 850 ml 3280 ml Laboratory Tests Test 05/01/17 06:55 05/01/17 13:20 White Blood Count 6.5 K/UL (4.8-10.8) Red Blood Count 3.33 M/UL (4.70-6.10) L Hemoglobin 9.7 G/DL (14.2-18.0) L Hematocrit 30.2 % (42.0-52.0) L Mean Corpuscular Volume 91 FL (80-99) Mean Corpuscular Hemoglobin 29.1 PG (27.0-31.0) Mean Corpuscular Hemoglobin Concent 32.1 G/DL (32.0-36.0) Red Cell Distribution Width 15.7 % (11.6-14.8) H Platelet Count 284 K/UL (150-450) Mean Platelet Volume 6.0 FL (6.5-10.1) L Neutrophils (%) (Auto) % (45.0-75.0) Lymphocytes (%) (Auto) % (20.0-45.0) Monocytes (%) (Auto) % (1.0-10.0) Eosinophils (%) (Auto) % (0.0-3.0) Basophils (%) (Auto) % (0.0-2.0) Differential Total Cells Counted 100 Neutrophils % (Manual) 54 % (45-75) Lymphocytes % (Manual) 19 % (20-45) L Monocytes % (Manual) 16 % (1-10) H Eosinophils % (Manual) 10 % (0-3) H Basophils % (Manual) 1 % (0-2) Band Neutrophils 0 % (0-8) Platelet Estimate Adequate Platelet Morphology Normal Hypochromasia 2+ Anisocytosis 1+ Erythrocyte Sedimentation Rate 81 MM/HR (0-20) H Reticulocyte Count 4.2 % (0.0-2.0) H Prothrombin Time 11.1 SEC (9.30-11.50) Prothromb Time International Ratio 1.1 (0.9-1.1) Activated Partial Thromboplast Time 30 SEC (23-33) Sodium Level 141 mEQ/L (135-145) Potassium Level 3.8 mEQ/L (3.4-4.9) Chloride Level 96 mEQ/L (98-107) L Carbon Dioxide Level 34 mEQ/L (20-30) H Anion Gap 11 (5-15) Blood Urea Nitrogen 16 mg/dL (7-23) Creatinine 0.7 mg/dL (0.7-1.2) Estimat Glomerular Filtration Rate mL/min (>60) Glucose Level 104 mg/dL (74-106) Calcium Level 8.8 mg/dL (8.6-10.2) Iron Level 43 ug/dL (59-158) L Total Iron Binding Capacity 230 ug/dL (250-400) L Percent Iron Saturation 19 % (15-50) Unsaturated Iron Binding 187 ug/dL (112-346) Lactate Dehydrogenase Pending Carcinoembryonic Antigen 3.5 ng/mL H Vitamin B12 Level 316 pg/mL (211-946) Folate Pending Digoxin Level 0.5 ng/mL (0.5-2.0) Vancomycin Level Trough 14.9 ug/mL (5.0-12.0) H Microbiology Date/Time Source Procedure Growth Status 04/29/17 21:45 Blood Blood Culture - Preliminary NO GROWTH AFTER 24 HOURS Resulted 04/29/17 21:35 Blood Blood Culture - Preliminary NO GROWTH AFTER 24 HOURS Resulted 04/29/17 21:35 Urine,Clean Catch Urine Culture - Preliminary YEAST Resulted 04/30/17 01:20 Wrist Right Gram Stain - Final Resulted 04/30/17 01:20 Wrist Right Wound Culture - Preliminary NO GROWTH AFTER 24 HOURS Resulted JAMES WRIGHT 14, 2017 18:54
--- NOTE | 2017-05-01 19:30 | Progress Note ---
SUBJECTIVE: The patient is more alert however still the eyes are closed. He knows the year, month, and place. MENTAL STATUS EXAMINATION: He is asleep, able to communicate, arousable, oriented to self and place. Mood is neutral. Affect is constricted. Congruent with mood. Thought process is concrete. Thought content, no suicidal, homicidal ideation. ASSESSMENT: Dementia, delirium, fever. PLAN: 1. We will discontinue the Zyprexa 2.5 at bedtime. 2. Change the Seroquel to 25 mg at bedtime. 3. We will continue follow and monitor symptoms. Jerman Vitale M.D. DR: Arcelia JOB#: [id number] CC:
[2017-05-01 20:00] VITALS: BP 128/64
[2017-05-01] MEDS: Atorvastatin 80mg tab ORAL SCH (21:34)
--- NOTE | 2017-05-01 21:45 | Consultation ---
DATE OF CONSULTATION: 04/30/2017 HISTORY OF PRESENT ILLNESS: The patient is a 71-year-old male with a history of CAD, pacemaker, CVA, dementia, depression, psychotic disorder who was admitted to the hospital with due to fevers. During the evaluation, patient was asleep however was able to answer the questions. He knows the year and place. He is presenting waxing and waning consciousness, memory, concentration, and attention. PAST PSYCHIATRIC HISTORY: The patient was diagnosed with depression and psychotic disorder, has been treated with Seroquel, olanzapine. No known psychiatric hospitalization. No suicide attempts. PAST MEDICAL HISTORY: Several medical conditions including CAD, pacemaker, CVA, dementia, and asthma. ALLERGIES: Include iodine and penicillin. SUBSTANCE ABUSE HISTORY: No history of illicit drug use or alcohol. MENTAL STATUS EXAMINATION: The patient is presenting waxing and waning consciousness. Mood is neutral. Affect is constricted. Congruent with mood. Thought process is concrete. Thought content, no suicidal, homicidal ideation. ASSESSMENT: AXIS I: Delirium due to general medical condition, major depressive disorder, dementia by history. AXIS II: Deferred. AXIS III: Fever. AXIS IV: Low. AXIS V: 20. PLAN: 1. The patient will be continued on Seroquel, olanzapine, and Restoril. 2. We will continue to follow the patient and provide the patient with supportive therapy and reality orientation. Jerman Vitale M.D. DR: Arcelia JOB#: [id number] CC:
[2017-05-02] VITALS: BP 118/61
[2017-05-02] MEDS: Vancomycin 1.5 GM in D5W 325 ML IVPB SCH ×2 (02:20→14:23)
[2017-05-02 04:00] VITALS: BP 113/65
[2017-05-02] MEDS: Aztreonam Inj 1 GM in NS 55 ML IVPB SCH ×3 (05:56→21:16)
[2017-05-02 08:00] VITALS: BP 130/79
[2017-05-02 08:05] LABS: MEAN CORPUSCULAR HEMOGLOBIN 30.5 PG (27.0-31.0); MEAN CORPUSCULAR HGB CONC 33.7 G/DL (32.0-36.0); MEAN CORPUSCULAR VOLUME 90 FL (80-99); MEAN PLATELET VOLUME 5.6 FL (6.5-10.1); PLATELET COUNT 293 K/UL (150-450); RED BLOOD COUNT 3.11 M/UL (4.70-6.10); RED CELL DISTRIBUTION WIDTH 15.7 % (11.6-14.8); WHITE BLOOD COUNT 6.4 K/UL (4.8-10.8)
[2017-05-02 08:18] LABS: ALANINE AMINOTRANSFERASE 12 U/L (3-41); ANION GAP 10 (5-15); ASPARTATE AMINO TRANSFERASE 14 U/L (5-40); CALCIUM 8.8 mg/dL (8.6-10.2); CARBON DIOXIDE 34 mEQ/L (20-30); CHLORIDE 96 mEQ/L (98-107); CREATININE 0.6 mg/dL (0.7-1.2); HEMOLYSIS 4; POTASSIUM 3.7 mEQ/L (3.4-4.9); SODIUM 140 mEQ/L (135-145)
[2017-05-02] MEDS: Digoxin 0.125mg tab ORAL SCH (09:06)
[2017-05-02] MEDS: Eliquis 2.5mg tablet ORAL SCH ×2 (09:07→21:15)
[2017-05-02] MEDS: Carvedilol 6.25mg Tab ORAL SCH ×2 (09:07→21:14)
[2017-05-02] MEDS: Lisinopril 10mg tab ORAL SCH (09:08)
[2017-05-02] MEDS: Tamsulosin 0.4mg cap ORAL SCH (09:13)
--- NOTE | 2017-05-02 09:16 | Diagnostic Imaging Report ---
Indications: DYSPNEA Technique: Portable AP chest Findings: Comparison: 04/29/2017 Inspiratory effort has decreased. Curvilinear opacity has developed in the right midlung. Cardiomegaly, bilateral interstitial infiltrates are unchanged. No other new abnormality identified. IMPRESSION: Stable bilateral congestive changes Development versus better visualization of subsegmental atelectasis right midlung
[2017-05-02 10:17] LABS: ANISOCYTOSIS 1+; BAND NEUTROPHILS % (MANUAL) 0 % (0-8); BASOPHILS % (MANUAL) 0 % (0-2); EOSINOPHILS % (MANUAL) 11 % (0-3); HYPOCHROMASIA 1+; LYMPHOCYTES % (MANUAL) 20 % (20-45); NEUTROPHILS % (MANUAL) 60 % (45-75); PLATELET ESTIMATE ADEQUATE; PLATELET MORPHOLOGY NORMAL; TOTAL CELLS COUNTED 100
--- NOTE | 2017-05-02 10:44 | Infectious Diseases Prog Note ---
Assessment/Plan Assessment/Plan A: The patient is a 71-year-old male with Sepsis, pneumonia cxray : bilateral interstitial disease. Pulmonary edema. SP SOB +ve Ucx :Ludy : colonizer no need to Rx Cellulitis of lower Ext improved History of CVA. Dementia. History of urinary obstruction. History of Ashraf catheter placement, PLAN: continue the patient on aztreonam and vancomycin d# 3 , upon DC will change Ab Rx to Clinda and Levaquin x 5 days to complete the course ( Rx in chart ) Monitor CBC. Monitor BMP Monitor cultures, blood and urine. 5. Monitor chest x-ray Subjective Constitutional: Denies: anorexia, chills, drenching sweats, fatigue, fever, no symptoms, other Allergies: Coded Allergies: IODINE (Verified Allergy, Unknown, 04/29/17) PENICILLINS (Verified Allergy, Unknown, 04/29/17) Objective Vital Signs Last 24 Hour Vital Signs Date Time Temp Pulse Resp B/P Pulse Ox O2 Delivery O2 Flow Rate FiO2 05/02/17 09:08 130/79 05/02/17 09:07 77 130/79 05/02/17 09:06 77 05/02/17 08:00 97.7 77 18 130/79 Nasal Cannula 2.0 89 05/02/17 04:00 97.9 71 20 113/65 94 Nasal Cannula 2.0 05/02/17 04:00 74 05/02/17 00:00 73 05/02/17 00:00 98.0 74 21 118/61 97 Nasal Cannula 2.0 05/01/17 21:35 72 125/60 05/01/17 21:27 95 Nasal Cannula 3.0 32 05/01/17 21:27 106 18 Nasal Cannula 3.0 32 05/01/17 21:27 Nasal Cannula 3.0 32 05/01/17 20:00 79 05/01/17 20:00 97.0 66 22 128/64 98 Nasal Cannula 2.0 05/01/17 16:00 97.9 85 20 134/77 96 Nasal Cannula 4.0 05/01/17 16:00 90 05/01/17 12:00 97.8 63 20 106/63 97 Nasal Cannula 4.0 05/01/17 12:00 88 Height (Feet): 5 Height (Inches): 10.00 Weight (Pounds): 176 HEENT: atraumatic Respiratory/Chest: normal breath sounds Cardiovascular: regular rhythm Abdomen: no organomegaly Extremities: other - bl leg erythema decreased Microbiology Date/Time Source Procedure Growth Status 04/29/17 21:45 Blood Blood Culture - Preliminary NO GROWTH AFTER 48 HOURS Resulted 04/29/17 21:35 Blood Blood Culture - Preliminary NO GROWTH AFTER 48 HOURS Resulted 05/01/17 19:00 Urine,Clean Catch Urine Culture - Preliminary NO GROWTH Resulted 04/29/17 21:35 Urine,Clean Catch Urine Culture - Final Ludy Albicans Complete 04/30/17 01:20 Wrist Right Gram Stain - Final Resulted 04/30/17 01:20 Wrist Right Wound Culture - Preliminary NO GROWTH AFTER 48 HOURS Resulted 04/30/17 00:20 Rectum VRE Culture - Final NO VANCOMYCIN RESISTANT ENTEROCOCCUS ... Complete Laboratory Tests Test 05/01/17 13:20 05/02/17 07:30 Vancomycin Level Trough 14.9 ug/mL (5.0-12.0) H White Blood Count 6.4 K/UL (4.8-10.8) Red Blood Count 3.11 M/UL (4.70-6.10) L Hemoglobin 9.5 G/DL (14.2-18.0) L Hematocrit 28.2 % (42.0-52.0) L Mean Corpuscular Volume 90 FL (80-99) Mean Corpuscular Hemoglobin 30.5 PG (27.0-31.0) Mean Corpuscular Hemoglobin Concent 33.7 G/DL (32.0-36.0) Red Cell Distribution Width 15.7 % (11.6-14.8) H Platelet Count 293 K/UL (150-450) Mean Platelet Volume 5.6 FL (6.5-10.1) L Neutrophils (%) (Auto) % (45.0-75.0) Lymphocytes (%) (Auto) % (20.0-45.0) Monocytes (%) (Auto) % (1.0-10.0) Eosinophils (%) (Auto) % (0.0-3.0) Basophils (%) (Auto) % (0.0-2.0) Differential Total Cells Counted 100 Neutrophils % (Manual) 60 % (45-75) Lymphocytes % (Manual) 20 % (20-45) Monocytes % (Manual) 9 % (1-10) Eosinophils % (Manual) 11 % (0-3) H Basophils % (Manual) 0 % (0-2) Band Neutrophils 0 % (0-8) Platelet Estimate Adequate Platelet Morphology Normal Hypochromasia 1+ Anisocytosis 1+ Sodium Level 140 mEQ/L (135-145) Potassium Level 3.7 mEQ/L (3.4-4.9) Chloride Level 96 mEQ/L (98-107) L Carbon Dioxide Level 34 mEQ/L (20-30) H Anion Gap 10 (5-15) Blood Urea Nitrogen 14 mg/dL (7-23) Creatinine 0.6 mg/dL (0.7-1.2) L Estimat Glomerular Filtration Rate mL/min (>60) Glucose Level 119 mg/dL (74-106) H Calcium Level 8.8 mg/dL (8.6-10.2) Total Bilirubin 0.6 mg/dL (0.0-1.2) Aspartate Amino Transf (AST/SGOT) 14 U/L (5-40) Alanine Aminotransferase (ALT/SGPT) 12 U/L (3-41) Alkaline Phosphatase 82 U/L (40-129) Pro-B-Type Natriuretic Peptide 2408 pg/mL (0-125) H Total Protein 6.0 g/dL (6.6-8.7) L Albumin 3.0 g/dL (3.5-5.2) L Globulin 3.0 g/dL Albumin/Globulin Ratio 1.0 (1.0-2.7) Current Medications Medications (Trade) Dose Ordered Sig/Lakesha Route PRN Reason Start Time Stop Time Status Last Admin Dose Admin Acetaminophen (Tylenol) 650 mg Q4H PRN ORAL fever 04/29/17 22:45 05/29/17 22:44 05/02/17 05:57 Al Hydroxide/Mg Hydroxide (Mylanta II) 30 ml Q6H PRN ORAL dyspepsia 04/29/17 22:45 05/29/17 22:44 Albuterol/ Ipratropium (DuoNeb 0.5-3(2.5)mg/3ml) 3 ml EVERY 4 HOURS PRN HHN Shortness of Breath 04/29/17 22:45 05/04/17 22:44 05/01/17 10:21 Apixaban (Eliquis) 5 mg Q12HR ORAL 04/30/17 21:00 05/30/17 20:59 05/02/17 09:07 Atorvastatin Calcium (Lipitor) 80 mg BEDTIME ORAL 04/30/17 21:00 05/30/17 20:59 05/01/17 21:34 Aztreonam/Sodium Chloride (Azactam/Sodium Chloride) 55 ml @ 110 mls/hr EVERY 8 HOURS IVPB 04/30/17 06:00 05/07/17 05:59 05/02/17 05:56 Carvedilol (Coreg) 6.25 mg EVERY 12 HOURS ORAL 04/30/17 21:00 05/30/17 20:59 05/02/17 09:07 Digoxin (Lanoxin) 0.125 mg DAILY ORAL 04/30/17 13:00 05/30/17 12:59 05/02/17 09:06 Finasteride (Proscar) 5 mg DAILY ORAL 05/01/17 09:00 05/31/17 08:59 05/02/17 09:07 Furosemide (Lasix) 20 mg EVERY 12 HOURS IV 05/01/17 21:00 05/31/17 20:59 05/02/17 09:08 Levothyroxine Sodium (Synthroid) 150 mcg ACBREAKFAST ORAL 05/01/17 06:30 05/31/17 06:29 05/02/17 05:57 Lisinopril (Zestril) 10 mg DAILY ORAL 05/01/17 09:00 05/31/17 08:59 05/02/17 09:08 Nitroglycerin (Ntg) 0.4 mg Q5M PRN SL Prn Chest Pain 04/29/17 22:45 05/29/17 22:44 Ondansetron HCl (Zofran) 4 mg Q6H PRN IVP Nausea & Vomiting 04/29/17 22:45 05/29/17 22:44 Polyethylene Glycol (Miralax) 17 gm DAILYPRN PRN ORAL Constipation 04/29/17 22:45 05/29/17 22:44 Promethazine HCl/ Codeine (Phenergan with Codeine) 5 ml Q4H PRN ORAL For Cough 04/29/17 22:45 05/29/17 22:44 Quetiapine Fumarate (SEROquel) 25 mg BEDTIME ORAL 05/02/17 21:00 06/01/17 20:59 Sennosides (Senokot) 8.6 mg DAILY ORAL 05/01/17 09:00 05/31/17 08:59 05/02/17 09:08 Tamsulosin HCl (Flomax) 0.4 mg DAILY ORAL 05/01/17 09:00 05/31/17 08:59 05/02/17 09:13 Temazepam 15 mg 15 mg HSPRN PRN ORAL Insomnia 04/29/17 22:45 05/06/17 22:44 Vancomycin HCl 1 ea 1 ea DAILY PRN MISC Per rx protocol 04/29/17 22:45 05/29/17 22:44 Vancomycin HCl/ Dextrose (Vancomycin/D5W) 325 ml @ 162.5 mls/ hr Q12H IVPB 04/30/17 02:00 05/05/17 01:59 05/02/17 02:20 JEFFREY GERARD M.D. May 02, 2017 10:43
[2017-05-02 12:00] VITALS: BP 103/50
--- NOTE | 2017-05-02 14:47 | Pulmonology Progress Note ---
Assessment/Plan Problems: (1) Sepsis (2) Acute encephalopathy (3) Aspiration pneumonia (4) CAD (coronary artery disease) (5) CHF (congestive heart failure) (6) BPH (benign prostatic hyperplasia) (7) Pacemaker (8) Anemia (9) Dementia Assessment/Plan improving no fever check cultures continue abx dc home in am if continues to improve f/u cardio recommendation echo noted, EF of 30% and pulmonary hypertension Subjective ROS Limited/Unobtainable: No Constitutional: Reports: no symptoms HEENT: Repors: no symptoms Respiratory: Reports: no symptoms Allergies: Coded Allergies: IODINE (Verified Allergy, Unknown, 04/29/17) PENICILLINS (Verified Allergy, Unknown, 04/29/17) Objective Last 24 Hour Vital Signs Date Time Temp Pulse Resp B/P Pulse Ox O2 Delivery O2 Flow Rate FiO2 05/02/17 12:00 72 05/02/17 12:00 98.2 78 18 103/50 Nasal Cannula 2.0 92 05/02/17 09:08 130/79 05/02/17 09:07 77 130/79 05/02/17 09:06 77 05/02/17 08:00 97.7 77 18 130/79 Nasal Cannula 2.0 89 05/02/17 07:55 77 05/02/17 04:00 97.9 71 20 113/65 94 Nasal Cannula 2.0 05/02/17 04:00 74 05/02/17 00:00 73 05/02/17 00:00 98.0 74 21 118/61 97 Nasal Cannula 2.0 05/01/17 21:35 72 125/60 05/01/17 21:27 95 Nasal Cannula 3.0 32 05/01/17 21:27 106 18 Nasal Cannula 3.0 32 05/01/17 21:27 Nasal Cannula 3.0 32 05/01/17 20:00 79 05/01/17 20:00 97.0 66 22 128/64 98 Nasal Cannula 2.0 05/01/17 16:00 97.9 85 20 134/77 96 Nasal Cannula 4.0 05/01/17 16:00 90 Intake and Output 05/01/17 05/02/17 19:00 07:00 Intake Total 480 ml 272.5 ml Output Total 1400 ml 1100 ml Balance -920 ml -827.5 ml Intake Oral 480 ml IV Total 272.5 ml Output Urine Total 1400 ml 1100 ml Objective General Appearance: WD/WN Lines, tubes and drains: peripheral HEENT: normocephalic, atraumatic Neck: non-tender, normal alignment Respiratory/Chest: chest wall non-tender, lungs clear Cardiovascular/Chest: normal peripheral pulses Abdomen: normal bowel sounds Genitourinary/Rectal: normal genital exam Extremities: trace edema Microbiology Date/Time Source Procedure Growth Status 04/29/17 21:45 Blood Blood Culture - Preliminary NO GROWTH AFTER 48 HOURS Resulted 04/29/17 21:35 Blood Blood Culture - Preliminary NO GROWTH AFTER 48 HOURS Resulted 04/30/17 00:20 Nasal Nares MRSA Culture - Final NO METHICILLIN RESISTANT STAPH AUREUS... Complete 05/01/17 19:00 Urine,Clean Catch Urine Culture - Preliminary NO GROWTH Resulted 04/29/17 21:35 Urine,Clean Catch Urine Culture - Final Ludy Albicans Complete 04/30/17 01:20 Wrist Right Gram Stain - Final Resulted 04/30/17 01:20 Wrist Right Wound Culture - Preliminary NO GROWTH AFTER 48 HOURS Resulted 04/30/17 00:20 Rectum VRE Culture - Final NO VANCOMYCIN RESISTANT ENTEROCOCCUS ... Complete Laboratory Tests 05/02/17 07:30: White Blood Count 6.4, Red Blood Count 3.11L, Hemoglobin 9.5L, Hematocrit 28.2L , Mean Corpuscular Volume 90, Mean Corpuscular Hemoglobin 30.5, Mean Corpuscular Hemoglobin Concent 33.7, Red Cell Distribution Width 15.7H, Platelet Count 293, Mean Platelet Volume 5.6L, Neutrophils (%) (Auto) , Lymphocytes (%) (Auto) , Monocytes (%) (Auto) , Eosinophils (%) (Auto) , Basophils (%) (Auto) , Differential Total Cells Counted 100, Neutrophils % ( Manual) 60, Lymphocytes % (Manual) 20, Monocytes % (Manual) 9, Eosinophils % ( Manual) 11H, Basophils % (Manual) 0, Band Neutrophils 0, Platelet Estimate Adequate, Platelet Morphology Normal, Hypochromasia 1+, Anisocytosis 1+, Sodium Level 140, Potassium Level 3.7, Chloride Level 96L, Carbon Dioxide Level 34H, Anion Gap 10, Blood Urea Nitrogen 14, Creatinine 0.6L, Estimat Glomerular Filtration Rate , Glucose Level 119H, Calcium Level 8.8, Total Bilirubin 0.6, Aspartate Amino Transf (AST/SGOT) 14, Alanine Aminotransferase (ALT/SGPT) 12, Alkaline Phosphatase 82, Pro-B-Type Natriuretic Peptide 2408H, Total Protein 6.0L, Albumin 3.0L, Globulin 3.0, Albumin/Globulin Ratio 1.0 Current Medications Medications (Trade) Dose Ordered Sig/Lakesha Route PRN Reason Start Time Stop Time Status Last Admin Dose Admin Acetaminophen (Tylenol) 650 mg Q4H PRN ORAL fever 04/29/17 22:45 05/29/17 22:44 05/02/17 05:57 Al Hydroxide/Mg Hydroxide (Mylanta II) 30 ml Q6H PRN ORAL dyspepsia 04/29/17 22:45 05/29/17 22:44 Albuterol/ Ipratropium (DuoNeb 0.5-3(2.5)mg/3ml) 3 ml EVERY 4 HOURS PRN HHN Shortness of Breath 04/29/17 22:45 05/04/17 22:44 05/01/17 10:21 Apixaban (Eliquis) 5 mg Q12HR ORAL 04/30/17 21:00 05/30/17 20:59 05/02/17 09:07 Atorvastatin Calcium (Lipitor) 80 mg BEDTIME ORAL 04/30/17 21:00 05/30/17 20:59 05/01/17 21:34 Aztreonam/Sodium Chloride (Azactam/Sodium Chloride) 55 ml @ 110 mls/hr EVERY 8 HOURS IVPB 04/30/17 06:00 05/07/17 05:59 05/02/17 13:33 Carvedilol (Coreg) 6.25 mg EVERY 12 HOURS ORAL 04/30/17 21:00 05/30/17 20:59 05/02/17 09:07 Digoxin (Lanoxin) 0.125 mg DAILY ORAL 04/30/17 13:00 05/30/17 12:59 05/02/17 09:06 Finasteride (Proscar) 5 mg DAILY ORAL 05/01/17 09:00 05/31/17 08:59 05/02/17 09:07 Furosemide (Lasix) 20 mg EVERY 12 HOURS IV 05/01/17 21:00 05/31/17 20:59 05/02/17 09:08 Levothyroxine Sodium (Synthroid) 150 mcg ACBREAKFAST ORAL 05/01/17 06:30 05/31/17 06:29 05/02/17 05:57 Lisinopril (Zestril) 10 mg DAILY ORAL 05/01/17 09:00 05/31/17 08:59 05/02/17 09:08 Nitroglycerin (Ntg) 0.4 mg Q5M PRN SL Prn Chest Pain 04/29/17 22:45 05/29/17 22:44 Ondansetron HCl (Zofran) 4 mg Q6H PRN IVP Nausea & Vomiting 04/29/17 22:45 05/29/17 22:44 Polyethylene Glycol (Miralax) 17 gm DAILYPRN PRN ORAL Constipation 04/29/17 22:45 05/29/17 22:44 Promethazine HCl/ Codeine (Phenergan with Codeine) 5 ml Q4H PRN ORAL For Cough 04/29/17 22:45 05/29/17 22:44 Quetiapine Fumarate (SEROquel) 25 mg BEDTIME ORAL 05/02/17 21:00 06/01/17 20:59 Sennosides (Senokot) 8.6 mg DAILY ORAL 05/01/17 09:00 05/31/17 08:59 05/02/17 09:08 Tamsulosin HCl (Flomax) 0.4 mg DAILY ORAL 05/01/17 09:00 05/31/17 08:59 05/02/17 09:13 Temazepam 15 mg 15 mg HSPRN PRN ORAL Insomnia 04/29/17 22:45 05/06/17 22:44 Vancomycin HCl 1 ea 1 ea DAILY PRN MISC Per rx protocol 04/29/17 22:45 05/29/17 22:44 Vancomycin HCl/ Dextrose (Vancomycin/D5W) 325 ml @ 162.5 mls/ hr Q12H IVPB 04/30/17 02:00 05/05/17 01:59 05/02/17 14:23 MELISSA ANDERSON May 02, 2017 14:47
[2017-05-02 16:00] VITALS: BP 111/64
--- NOTE | 2017-05-02 19:02 | Cardiology Progress Note ---
Assessment/Plan Assessment/Plan chf acute systolic icm ef previously 23% (9% scar , 9% viable ischemic) extensive ca calcification hs to tobacco use do afib perm on anticoagulin with eliquis dementia hx iodine pen allergy copd s/p recent sepsis diuretic will increase to bid for nwo keep on tele tel showed afib hopefully dc tele soon afterload preload reduction anticoagulation with eliqauis dose may need to be adjsuted now with normal renal function previously not had cath for several reason one of which was renal insuf now with normal renal function may need to reconsider near [facility] [place] d/w dr se mon back to facility in [facility] next 24 -48 hours otherwise cth at [facility] d/w dr ruff adjsut acei doew after iv diurtic stopped Subjective Cardiovascular: Denies: chest pain, lightheadedness, palpitations Respiratory: Denies: shortness of breath Gastrointestinal/Abdominal: Denies: abdominal pain Genitourinary: Denies: burning Subjective want to get out of bed Objective Last 24 Hour Vital Signs Date Time Temp Pulse Resp B/P Pulse Ox O2 Delivery O2 Flow Rate FiO2 05/02/17 16:00 67 18 111/64 93 Room Air 05/02/17 15:30 73 05/02/17 12:00 72 05/02/17 12:00 98.2 78 18 103/50 Nasal Cannula 2.0 92 05/02/17 09:08 130/79 05/02/17 09:07 77 130/79 05/02/17 09:06 77 05/02/17 08:00 97.7 77 18 130/79 Nasal Cannula 2.0 89 05/02/17 07:55 77 05/02/17 06:40 Nasal Cannula 3.0 05/02/17 06:39 74 20 Nasal Cannula 3.0 05/02/17 06:38 94 Nasal Cannula 3.0 05/02/17 04:00 97.9 71 20 113/65 94 Nasal Cannula 2.0 05/02/17 04:00 74 05/02/17 00:00 73 05/02/17 00:00 98.0 74 21 118/61 97 Nasal Cannula 2.0 05/01/17 21:35 72 125/60 05/01/17 21:27 95 Nasal Cannula 3.0 32 05/01/17 21:27 106 18 Nasal Cannula 3.0 32 05/01/17 21:27 Nasal Cannula 3.0 32 05/01/17 20:00 79 05/01/17 20:00 97.0 66 22 128/64 98 Nasal Cannula 2.0 General Appearance: no apparent distress, alert Neck: supple Cardiovascular: normal rate, regular rhythm Respiratory/Chest: lungs clear, normal breath sounds Abdomen: normal bowel sounds, non tender, soft Extremities: moderate edema Intake and Output 05/01/17 05/02/17 19:00 07:00 Intake Total 480 ml 272.5 ml Output Total 1400 ml 1100 ml Balance -920 ml -827.5 ml Intake Oral 480 ml IV Total 272.5 ml Output Urine Total 1400 ml 1100 ml Laboratory Tests Test 05/02/17 07:30 White Blood Count 6.4 K/UL (4.8-10.8) Red Blood Count 3.11 M/UL (4.70-6.10) L Hemoglobin 9.5 G/DL (14.2-18.0) L Hematocrit 28.2 % (42.0-52.0) L Mean Corpuscular Volume 90 FL (80-99) Mean Corpuscular Hemoglobin 30.5 PG (27.0-31.0) Mean Corpuscular Hemoglobin Concent 33.7 G/DL (32.0-36.0) Red Cell Distribution Width 15.7 % (11.6-14.8) H Platelet Count 293 K/UL (150-450) Mean Platelet Volume 5.6 FL (6.5-10.1) L Neutrophils (%) (Auto) % (45.0-75.0) Lymphocytes (%) (Auto) % (20.0-45.0) Monocytes (%) (Auto) % (1.0-10.0) Eosinophils (%) (Auto) % (0.0-3.0) Basophils (%) (Auto) % (0.0-2.0) Differential Total Cells Counted 100 Neutrophils % (Manual) 60 % (45-75) Lymphocytes % (Manual) 20 % (20-45) Monocytes % (Manual) 9 % (1-10) Eosinophils % (Manual) 11 % (0-3) H Basophils % (Manual) 0 % (0-2) Band Neutrophils 0 % (0-8) Platelet Estimate Adequate Platelet Morphology Normal Hypochromasia 1+ Anisocytosis 1+ Sodium Level 140 mEQ/L (135-145) Potassium Level 3.7 mEQ/L (3.4-4.9) Chloride Level 96 mEQ/L (98-107) L Carbon Dioxide Level 34 mEQ/L (20-30) H Anion Gap 10 (5-15) Blood Urea Nitrogen 14 mg/dL (7-23) Creatinine 0.6 mg/dL (0.7-1.2) L Estimat Glomerular Filtration Rate mL/min (>60) Glucose Level 119 mg/dL (74-106) H Calcium Level 8.8 mg/dL (8.6-10.2) Total Bilirubin 0.6 mg/dL (0.0-1.2) Aspartate Amino Transf (AST/SGOT) 14 U/L (5-40) Alanine Aminotransferase (ALT/SGPT) 12 U/L (3-41) Alkaline Phosphatase 82 U/L (40-129) Pro-B-Type Natriuretic Peptide 2408 pg/mL (0-125) H Total Protein 6.0 g/dL (6.6-8.7) L Albumin 3.0 g/dL (3.5-5.2) L Globulin 3.0 g/dL Albumin/Globulin Ratio 1.0 (1.0-2.7) Microbiology Date/Time Source Procedure Growth Status 04/29/17 21:45 Blood Blood Culture - Preliminary NO GROWTH AFTER 48 HOURS Resulted 04/29/17 21:35 Blood Blood Culture - Preliminary NO GROWTH AFTER 48 HOURS Resulted 04/30/17 00:20 Nasal Nares MRSA Culture - Final NO METHICILLIN RESISTANT STAPH AUREUS... Complete 05/01/17 19:00 Urine,Clean Catch Urine Culture - Preliminary NO GROWTH Resulted 04/29/17 21:35 Urine,Clean Catch Urine Culture - Final Ludy Albicans Complete 04/30/17 01:20 Wrist Right Gram Stain - Final Resulted 04/30/17 01:20 Wrist Right Wound Culture - Preliminary NO GROWTH AFTER 48 HOURS Resulted 04/30/17 00:20 Rectum VRE Culture - Final NO VANCOMYCIN RESISTANT ENTEROCOCCUS ... Complete JAMES WRIGHT May 02, 2017 19:02
[2017-05-02 20:00] VITALS: BP 113/77
--- NOTE | 2017-05-02 20:00 | Progress Note ---
DATE: 05/02/2017 SUBJECTIVE: The patient is doing well, able to have a simple conversation during the evaluation; however, eyes are closed. No change since previous encounter. MENTAL STATUS EXAMINATION: The patient is alert and oriented x3. Mood is dysphoric. Affect is constricted. Congruent with mood. Thought process is concrete. Thought content, no suicidal or homicidal ideation. Cognition is impaired. Insight and judgment impaired. ASSESSMENT: Depression, dementia. PLAN: The patient will be continued on low dose of Seroquel. Jerman Vitale M.D. DR: Arcelia JOB#: [id number] CC:
[2017-05-02] MEDS: Atorvastatin 80mg tab ORAL SCH (21:14)
[2017-05-03] VITALS (7 sets, daily range): BP systolic 92–144; BP diastolic 41–78
[2017-05-03] MEDS: Vancomycin 1.5 GM in D5W 325 ML IVPB SCH ×2 (01:23→16:09)
[2017-05-03] MEDS: Aztreonam Inj 1 GM in NS 55 ML IVPB SCH ×3 (05:34→21:57)
[2017-05-03] MEDS: Digoxin 0.125mg tab ORAL SCH (08:43)
[2017-05-03] MEDS: Eliquis 2.5mg tablet ORAL SCH ×2 (08:44→21:28)
[2017-05-03] MEDS: Tamsulosin 0.4mg cap ORAL SCH (08:44)
[2017-05-03] MEDS: Lisinopril 10mg tab ORAL SCH (09:00)
[2017-05-03] MEDS: Carvedilol 6.25mg Tab ORAL SCH ×2 (09:00→21:29)
[2017-05-03] MEDS: DuoNeb 0.5-3(2.5)mg/3ml neb HHN PRN (09:17)
--- NOTE | 2017-05-03 11:00 | Pulmonology Progress Note ---
Assessment/Plan Assessment/Plan ASSESSMENT acute on chronic systolic and diastolic CHF exacerbation acute encephalopathy sepsis possible aspiration PNA cellulitis LE COPD CM pacemaker A fibrillation moderate pulmonary HTN hx of CVA anemia renal insufficiency delirium 2 to general medical condition major depressive disorder dementia LLE and knee wound POA BPH PLAN OF CARE tele ECHO EF 30-35% and RVSP of 57 c/w moderate pulmonary HTN cardio follows diuresis monitor renal parameters, lytes medical management of CHF with BB, Digoxin, HAMIDA and diuretic permanent A fib, rate controlled with BB and Digoxin resume a/coagulation ( renal insufficiency resolved) per cardio recomemdnations pro BNP trending down initial CXR with CHF and possible PNA f fup CXR stable bilateral congestive changes abx ID follows blood cx negative, urine + Ludy-colonized upon dc change to oral abx O2 HHN prn pulse ox stable on O2 via NC a/tussive prn venous Duplex BLE negative anemia wup with low iron, HH at baseline mild elevation in CEA , colonoscopy as outpatient psych follows on Seroquel and Zyprexa Bowel regimen wound care working with PT declined SNF dc to assisted living today with HH for HHN checked O2 sat on RA, only 88% with walking, will need portable oxygen for case picker to arrange case discussed and evaluated by supervising physician Subjective Allergies: Coded Allergies: IODINE (Verified Allergy, Unknown, 04/29/17) PENICILLINS (Verified Allergy, Unknown, 04/29/17) Subjective denies chest pain, SOB denies respiratory distress on O2 via NC sat stable Objective Last 24 Hour Vital Signs Date Time Temp Pulse Resp B/P Pulse Ox O2 Delivery O2 Flow Rate FiO2 05/03/17 09:18 75 20 95 Nasal Cannula 3.0 05/03/17 09:08 85 22 93 Nasal Cannula 3.0 05/03/17 09:00 100/41 05/03/17 09:00 75 100/41 05/03/17 08:43 77 05/03/17 08:10 77 22 Nasal Cannula 3.0 05/03/17 08:00 98.1 61 18 100/41 94 Nasal Cannula 3.0 05/03/17 07:59 95 Nasal Cannula 3.0 05/03/17 07:58 Nasal Cannula 3.0 05/03/17 04:00 98.0 92 20 116/61 98 Nasal Cannula 3.0 05/03/17 04:00 71 05/03/17 00:00 70 05/03/17 00:00 97.7 73 20 92/52 99 Nasal Cannula 3.0 05/02/17 21:14 77 113/77 05/02/17 20:00 98.2 77 18 113/77 100 Nasal Cannula 3.0 05/02/17 20:00 69 05/02/17 19:38 93 Room Air 05/02/17 19:38 Room Air 05/02/17 19:37 66 18 Room Air 21 05/02/17 16:00 67 18 111/64 93 Room Air 05/02/17 15:30 73 05/02/17 12:00 72 05/02/17 12:00 98.2 78 18 103/50 Nasal Cannula 2.0 92 Intake and Output 05/02/17 05/03/17 19:00 07:00 Intake Total 55 ml 435.0 ml Output Total 900 ml 850 ml Balance -845 ml -415.0 ml IV Total 55 ml 435.0 ml Output Urine Total 900 ml 850 ml General Appearance: no acute distress, other - awake, alert, responsive male HEENT: normocephalic, atraumatic, anicteric, mucous membranes moist Respiratory/Chest: chest wall non-tender, lungs clear - moderate air entry , no respiratory distress, no accessory muscle use Cardiovascular: normal rate, other - pacing with underlying A fib, some PVC Abdomen: normal bowel sounds, soft, non tender Genitourinary: normal external genitalia Extremities: other - tarce edema BLE Skin: other - LLE and knee wound Neurologic/Psychiatric: abnormal gait - unsteady , alert, responsive, normal mood/affect Microbiology Date/Time Source Procedure Growth Status 05/01/17 19:00 Urine,Clean Catch Urine Culture - Preliminary Ludy Albicans Resulted Current Medications Medications (Trade) Dose Ordered Sig/Lakesha Route PRN Reason Start Time Stop Time Status Last Admin Dose Admin Acetaminophen (Tylenol) 650 mg Q4H PRN ORAL fever 04/29/17 22:45 05/29/17 22:44 05/03/17 08:43 Al Hydroxide/Mg Hydroxide (Mylanta II) 30 ml Q6H PRN ORAL dyspepsia 04/29/17 22:45 05/29/17 22:44 Albuterol/ Ipratropium (DuoNeb 0.5-3(2.5)mg/3ml) 3 ml EVERY 4 HOURS PRN HHN Shortness of Breath 04/29/17 22:45 05/04/17 22:44 05/03/17 09:17 Apixaban (Eliquis) 5 mg Q12HR ORAL 04/30/17 21:00 05/30/17 20:59 05/03/17 08:44 Atorvastatin Calcium (Lipitor) 80 mg BEDTIME ORAL 04/30/17 21:00 05/30/17 20:59 05/02/17 21:14 Aztreonam/Sodium Chloride (Azactam/Sodium Chloride) 55 ml @ 110 mls/hr EVERY 8 HOURS IVPB 04/30/17 06:00 05/07/17 05:59 05/03/17 05:34 Carvedilol (Coreg) 6.25 mg EVERY 12 HOURS ORAL 04/30/17 21:00 05/30/17 20:59 05/02/17 21:14 Digoxin (Lanoxin) 0.125 mg DAILY ORAL 04/30/17 13:00 05/30/17 12:59 05/03/17 08:43 Finasteride (Proscar) 5 mg DAILY ORAL 05/01/17 09:00 05/31/17 08:59 05/03/17 08:44 Furosemide (Lasix) 20 mg EVERY 12 HOURS IV 05/01/17 21:00 05/31/17 20:59 05/03/17 08:43 Levothyroxine Sodium (Synthroid) 150 mcg ACBREAKFAST ORAL 05/01/17 06:30 05/31/17 06:29 05/03/17 05:34 Lisinopril (Zestril) 10 mg DAILY ORAL 05/01/17 09:00 05/31/17 08:59 05/02/17 09:08 Nitroglycerin (Ntg) 0.4 mg Q5M PRN SL Prn Chest Pain 04/29/17 22:45 05/29/17 22:44 Ondansetron HCl (Zofran) 4 mg Q6H PRN IVP Nausea & Vomiting 04/29/17 22:45 05/29/17 22:44 Polyethylene Glycol (Miralax) 17 gm DAILYPRN PRN ORAL Constipation 04/29/17 22:45 05/29/17 22:44 05/03/17 08:43 Promethazine HCl/ Codeine (Phenergan with Codeine) 5 ml Q4H PRN ORAL For Cough 04/29/17 22:45 05/29/17 22:44 Quetiapine Fumarate (SEROquel) 25 mg BEDTIME ORAL 05/02/17 21:00 06/01/17 20:59 05/02/17 21:14 Sennosides (Senokot) 8.6 mg DAILY ORAL 05/01/17 09:00 05/31/17 08:59 05/03/17 08:44 Tamsulosin HCl (Flomax) 0.4 mg DAILY ORAL 05/01/17 09:00 05/31/17 08:59 05/03/17 08:44 Temazepam 15 mg 15 mg HSPRN PRN ORAL Insomnia 04/29/17 22:45 05/06/17 22:44 Vancomycin HCl 1 ea 1 ea DAILY PRN MISC Per rx protocol 04/29/17 22:45 05/29/17 22:44 Vancomycin HCl/ Dextrose (Vancomycin/D5W) 325 ml @ 162.5 mls/ hr Q12H IVPB 04/30/17 02:00 05/05/17 01:59 05/03/17 01:23 Say (Scotty)Corrine NP May 03, 2017 11:00
[2017-05-03] MEDS ORDERED: CLINDAMYCIN HC150 MG ORAL (11:07)
[2017-05-03] MEDS ORDERED: ELIQUIS2.5 MG ORAL (11:07)
[2017-05-03] MEDS ORDERED: LEVAQUIN500 MG ORAL (11:07)
[2017-05-03] MEDS ORDERED: LASIX20 M1 ORAL (11:16)
[2017-05-03] MEDS ORDERED: DuoNeb 0.5-3(2.5)mg/3ml neb HHN PRN (16:30)
--- NOTE | 2017-05-03 18:14 | Cardiology Progress Note ---
Assessment/Plan Assessment/Plan chf acute systolic icm ef previously 23% (9% scar , 9% viable ischemic) extensive ca calcification hs to tobacco use do afib perm on anticoagulin with eliquis dementia hx iodine pen allergy copd s/p recent sepsis diuretic will increase to bid for nwo keep on tele tel showed afib hopefully dc tele soon afterload preload reduction anticoagulation with eliqauis dose may need to be adjsuted now with normal renal function previously not had cath for several reason one of which was renal insuf now with normal renal function may need to reconsider near futuer d/w dr saez dc was cancelled deu to hypoxemai cxr shows worsening infiltrate not febrile will increase diuretics to bid 40 hhn i already on abx sats ok on 5 liter nc Subjective Cardiovascular: Denies: chest pain Respiratory: Reports: cough, Denies: shortness of breath Gastrointestinal/Abdominal: Denies: abdominal pain Genitourinary: Denies: burning Subjective want to get out of bed Objective Last 24 Hour Vital Signs Date Time Temp Pulse Resp B/P Pulse Ox O2 Delivery O2 Flow Rate FiO2 05/03/17 16:35 85 22 100 Nasal Cannula 5.0 05/03/17 16:25 81 22 95 Nasal Cannula 3.0 05/03/17 16:00 98.6 80 144/78 83 Nasal Cannula 5.0 05/03/17 14:02 87 Room Air 05/03/17 13:18 88 Room Air 05/03/17 12:00 97.5 67 18 103/53 88 Room Air 05/03/17 09:18 75 20 95 Nasal Cannula 3.0 05/03/17 09:08 85 22 93 Nasal Cannula 3.0 05/03/17 09:00 100/41 05/03/17 09:00 75 100/41 05/03/17 08:43 77 05/03/17 08:10 77 22 Nasal Cannula 3.0 05/03/17 08:00 87 05/03/17 08:00 98.1 61 18 100/41 94 Nasal Cannula 3.0 05/03/17 07:59 95 Nasal Cannula 3.0 05/03/17 07:58 Nasal Cannula 3.0 05/03/17 04:00 98.0 92 20 116/61 98 Nasal Cannula 3.0 05/03/17 04:00 71 05/03/17 00:00 70 05/03/17 00:00 97.7 73 20 92/52 99 Nasal Cannula 3.0 05/02/17 21:14 77 113/77 05/02/17 20:00 98.2 77 18 113/77 100 Nasal Cannula 3.0 05/02/17 20:00 69 05/02/17 19:38 93 Room Air 05/02/17 19:38 Room Air 05/02/17 19:37 66 18 Room Air 21 General Appearance: no apparent distress Neck: no JVD Cardiovascular: normal rate Respiratory/Chest: crackles/rales Abdomen: non tender, soft Extremities: moderate edema Intake and Output 05/02/17 05/03/17 19:00 07:00 Intake Total 55 ml 435.0 ml Output Total 900 ml 850 ml Balance -845 ml -415.0 ml IV Total 55 ml 435.0 ml Output Urine Total 900 ml 850 ml Microbiology Date/Time Source Procedure Growth Status 05/03/17 04:46 Sputum Gram Stain - Final Resulted 05/03/17 04:46 Sputum Sputum Culture Pending Resulted 05/01/17 19:00 Urine,Clean Catch Urine Culture - Preliminary Ludy Albicans Resulted JAMES WRIGHT 16, 2017 18:14
--- NOTE | 2017-05-03 21:00 | Infectious Diseases Prog Note ---
Assessment/Plan Assessment/Plan A: The patient is a 71-year-old male with Sepsis, pneumonia cxray : bilateral interstitial disease. Pulmonary edema. SP SOB +ve Ucx :Ludy : colonizer no need to Rx Cellulitis of lower Ext improved U Legionella : Neg History of CVA. Dementia. History of urinary obstruction. History of Ashraf catheter placement, PLAN: continue the patient on aztreonam and vancomycin d# 4 , upon DC will change Ab Rx to Clinda and Levaquin x 5 days to complete the course ( Rx in chart ) Monitor CBC. Monitor BMP Monitor cultures, blood and urine. Monitor chest x-ray Subjective Constitutional: Denies: anorexia, chills, drenching sweats, fatigue, fever, no symptoms, other Allergies: Coded Allergies: IODINE (Verified Allergy, Unknown, 04/29/17) PENICILLINS (Verified Allergy, Unknown, 04/29/17) Objective Vital Signs Last 24 Hour Vital Signs Date Time Temp Pulse Resp B/P Pulse Ox O2 Delivery O2 Flow Rate FiO2 05/03/17 16:35 85 22 100 Nasal Cannula 5.0 05/03/17 16:25 81 22 95 Nasal Cannula 3.0 05/03/17 16:00 98.6 80 144/78 83 Nasal Cannula 5.0 05/03/17 14:02 87 Room Air 05/03/17 13:18 88 Room Air 05/03/17 12:00 73 05/03/17 12:00 97.5 67 18 103/53 88 Room Air 05/03/17 09:18 75 20 95 Nasal Cannula 3.0 05/03/17 09:08 85 22 93 Nasal Cannula 3.0 05/03/17 09:00 100/41 05/03/17 09:00 75 100/41 05/03/17 08:43 77 05/03/17 08:10 77 22 Nasal Cannula 3.0 05/03/17 08:00 87 05/03/17 08:00 98.1 61 18 100/41 94 Nasal Cannula 3.0 05/03/17 07:59 95 Nasal Cannula 3.0 05/03/17 07:58 Nasal Cannula 3.0 05/03/17 04:00 98.0 92 20 116/61 98 Nasal Cannula 3.0 05/03/17 04:00 71 05/03/17 00:00 70 05/03/17 00:00 97.7 73 20 92/52 99 Nasal Cannula 3.0 05/02/17 21:14 77 113/77 Height (Feet): 5 Height (Inches): 10.00 Weight (Pounds): 180 HEENT: atraumatic Respiratory/Chest: normal breath sounds Cardiovascular: normal rate Abdomen: no organomegaly Microbiology Date/Time Source Procedure Growth Status 05/03/17 04:46 Sputum Gram Stain - Final Resulted 05/03/17 04:46 Sputum Sputum Culture Pending Resulted 05/01/17 19:00 Urine,Clean Catch Urine Culture - Preliminary Ludy Albicans Resulted Current Medications Medications (Trade) Dose Ordered Sig/Lakesha Route PRN Reason Start Time Stop Time Status Last Admin Dose Admin Acetaminophen (Tylenol) 650 mg Q4H PRN ORAL fever 04/29/17 22:45 05/29/17 22:44 05/03/17 08:43 Al Hydroxide/Mg Hydroxide (Mylanta II) 30 ml Q6H PRN ORAL dyspepsia 04/29/17 22:45 05/29/17 22:44 Albuterol/ Ipratropium (DuoNeb 0.5-3(2.5)mg/3ml) 3 ml Q4H PRN HHN Shortness of Breath 05/03/17 16:30 05/08/17 16:29 05/03/17 16:33 Apixaban (Eliquis) 5 mg Q12HR ORAL 04/30/17 21:00 05/30/17 20:59 05/03/17 08:44 Atorvastatin Calcium (Lipitor) 80 mg BEDTIME ORAL 04/30/17 21:00 05/30/17 20:59 05/02/17 21:14 Aztreonam/Sodium Chloride (Azactam/Sodium Chloride) 55 ml @ 110 mls/hr EVERY 8 HOURS IVPB 04/30/17 06:00 05/07/17 05:59 05/03/17 15:28 Carvedilol (Coreg) 6.25 mg EVERY 12 HOURS ORAL 04/30/17 21:00 05/30/17 20:59 05/02/17 21:14 Digoxin (Lanoxin) 0.125 mg DAILY ORAL 04/30/17 13:00 05/30/17 12:59 05/03/17 08:43 Finasteride (Proscar) 5 mg DAILY ORAL 05/01/17 09:00 05/31/17 08:59 05/03/17 08:44 Furosemide (Lasix) 40 mg EVERY 12 HOURS IV 05/04/17 09:00 06/03/17 08:59 Levothyroxine Sodium (Synthroid) 150 mcg ACBREAKFAST ORAL 05/01/17 06:30 05/31/17 06:29 05/03/17 05:34 Lisinopril (Zestril) 10 mg DAILY ORAL 05/01/17 09:00 05/31/17 08:59 05/02/17 09:08 Nitroglycerin (Ntg) 0.4 mg Q5M PRN SL Prn Chest Pain 04/29/17 22:45 05/29/17 22:44 Ondansetron HCl (Zofran) 4 mg Q6H PRN IVP Nausea & Vomiting 04/29/17 22:45 05/29/17 22:44 Polyethylene Glycol (Miralax) 17 gm DAILYPRN PRN ORAL Constipation 04/29/17 22:45 05/29/17 22:44 05/03/17 08:43 Promethazine HCl/ Codeine (Phenergan with Codeine) 5 ml Q4H PRN ORAL For Cough 04/29/17 22:45 05/29/17 22:44 Quetiapine Fumarate (SEROquel) 25 mg BEDTIME ORAL 05/02/17 21:00 06/01/17 20:59 05/02/17 21:14 Sennosides (Senokot) 8.6 mg DAILY ORAL 05/01/17 09:00 05/31/17 08:59 05/03/17 08:44 Tamsulosin HCl (Flomax) 0.4 mg DAILY ORAL 05/01/17 09:00 05/31/17 08:59 05/03/17 08:44 Temazepam 15 mg 15 mg HSPRN PRN ORAL Insomnia 04/29/17 22:45 05/06/17 22:44 Vancomycin HCl 1 ea 1 ea DAILY PRN MISC Per rx protocol 04/29/17 22:45 05/29/17 22:44 Vancomycin HCl/ Dextrose (Vancomycin/D5W) 325 ml @ 162.5 mls/ hr Q12H IVPB 04/30/17 02:00 05/05/17 01:59 05/03/17 16:09 JEFFREY GERARD M.D. May 03, 2017 21:00
[2017-05-03] MEDS: Atorvastatin 80mg tab ORAL SCH (21:29)
[2017-05-04] MEDS: Vancomycin 1.5 GM in D5W 325 ML IVPB SCH ×2 (02:05→16:20)
[2017-05-04 04:00] VITALS: BP 114/68
[2017-05-04] MEDS: Aztreonam Inj 1 GM in NS 55 ML IVPB SCH ×2 (06:01→14:25)
[2017-05-04 08:00] VITALS: BP 110/53
[2017-05-04] MEDS: Tamsulosin 0.4mg cap ORAL SCH (08:56)
[2017-05-04] MEDS: Carvedilol 6.25mg Tab ORAL SCH (08:56)
[2017-05-04] MEDS: Eliquis 2.5mg tablet ORAL SCH (08:57)
[2017-05-04] MEDS: Digoxin 0.125mg tab ORAL SCH (08:58)
[2017-05-04] MEDS: Lisinopril 10mg tab ORAL SCH (08:59)
[2017-05-04] MEDS ORDERED: NS 275ml ONE (09:06)
[2017-05-04] MEDS ORDERED: Tubing IV Secondary IV ONE ×2 (09:06→15:59)
[2017-05-04 12:00] VITALS: BP 103/66
--- NOTE | 2017-05-04 14:25 | Pulmonology Progress Note ---
Assessment/Plan Assessment/Plan ASSESSMENT acute on chronic systolic and diastolic CHF exacerbation acute encephalopathy sepsis possible aspiration PNA cellulitis LE COPD CM pacemaker A fibrillation moderate pulmonary HTN hx of CVA anemia renal insufficiency delirium 2 to general medical condition major depressive disorder dementia LLE and knee wound POA BPH PLAN OF CARE tele ECHO EF 30-35% and RVSP of 57 c/w moderate pulmonary HTN cardio follows diuresis, dose of diuretic increased by cardio due to worsening CXR 05/03 monitor renal parameters, lytes medical management of CHF with BB, Digoxin, HAMIDA and diuretic permanent A fib, rate controlled with BB and Digoxin resume a/coagulation ( renal insufficiency resolved) per cardio recommendations pro BNP trending down initial CXR with CHF and possible PNA fup CXR stable bilateral congestive changes last CXR with increased congestion ( lasix dose incerased by cardio0 abx ID follows blood cx negative, urine + Ludy-colonized upon dc change to oral abx O2 HHN prn pulse ox stable on O2 via NC a/tussive prn venous Duplex BLE negative anemia wup with low iron, HH at baseline mild elevation in CEA , colonoscopy as outpatient psych follows on Seroquel and Zyprexa Bowel regimen wound care working with PT declined SNF dc to assisted living today with HH need O2 for home use checked O2 sat on RA, only 88% with walking, will need portable oxygen for case planner to arrange patient wants to go today can be dc if everything arranged case discussed and evaluated by supervising physician Subjective Allergies: Coded Allergies: IODINE (Verified Allergy, Unknown, 04/29/17) PENICILLINS (Verified Allergy, Unknown, 04/29/17) Subjective discharge 05/03 was cancelled due to hypoxemia patient declined to go to SNF need O2 for home use and HH services denies chest pain, SOB denies respiratory distress on O2 via NC sat stable Objective Last 24 Hour Vital Signs Date Time Temp Pulse Resp B/P Pulse Ox O2 Delivery O2 Flow Rate FiO2 05/04/17 12:00 80 18 103/66 Nasal Cannula 2.0 93 05/04/17 11:50 78 05/04/17 08:59 110/53 05/04/17 08:58 71 05/04/17 08:56 59 110/53 05/04/17 08:00 97.7 59 18 110/53 Nasal Cannula 2.0 95 05/04/17 07:39 85 05/04/17 06:56 Nasal Cannula 3.0 05/04/17 06:55 95 Nasal Cannula 3.0 05/04/17 06:54 68 20 Nasal Cannula 3.0 05/04/17 04:00 97.9 74 20 114/68 97 Nasal Cannula 5.0 05/04/17 04:00 73 05/04/17 00:00 86 05/03/17 23:49 98.4 80 20 113/65 99 Room Air 05/03/17 21:29 75 119/65 05/03/17 20:00 90 05/03/17 20:00 98.6 75 22 119/65 95 Nasal Cannula 5.0 05/03/17 19:05 81 21 Nasal Cannula 3.0 05/03/17 19:05 Nasal Cannula 3.0 05/03/17 19:05 94 Nasal Cannula 3.0 05/03/17 16:35 85 22 100 Nasal Cannula 5.0 05/03/17 16:25 81 22 95 Nasal Cannula 3.0 05/03/17 16:00 98.6 80 144/78 83 Nasal Cannula 5.0 Intake and Output 05/03/17 05/04/17 19:00 07:00 Intake Total 480 ml 110 ml Output Total 300 ml 800 ml Balance 180 ml -690 ml Intake Oral 480 ml IV Total 110 ml Output Urine Total 300 ml 800 ml # Voids 6 Objective General Appearance: no acute distress, awake, alert, responsive male HEENT: normocephalic, atraumatic, anicteric, mucous membranes moist Respiratory/Chest: chest wall non-tender, lungs clear - moderate air entry , no respiratory distress, no accessory muscle use Cardiovascular: normal rate, pacing with underlying A fib, some PVC Abdomen: normal bowel sounds, soft, non tender Genitourinary: normal external genitalia Extremities: Trace edema BLE Skin: LLE and knee wound Neurologic/Psychiatric: unsteady gait , alert, responsive, normal mood/affect Microbiology Date/Time Source Procedure Growth Status 05/03/17 04:46 Sputum Gram Stain - Final Resulted 05/03/17 04:46 Sputum Sputum Culture - Preliminary NORMAL UPPER RESPIRATORY SHERRY AT 24 ... Resulted 05/01/17 19:00 Urine,Clean Catch Urine Culture - Preliminary Ludy Albicans Resulted Current Medications Medications (Trade) Dose Ordered Sig/Lakesha Route PRN Reason Start Time Stop Time Status Last Admin Dose Admin Acetaminophen (Tylenol) 650 mg Q4H PRN ORAL fever 04/29/17 22:45 05/29/17 22:44 05/03/17 08:43 Al Hydroxide/Mg Hydroxide (Mylanta II) 30 ml Q6H PRN ORAL dyspepsia 04/29/17 22:45 05/29/17 22:44 Albuterol/ Ipratropium (DuoNeb 0.5-3(2.5)mg/3ml) 3 ml Q4H PRN HHN Shortness of Breath 05/03/17 16:30 05/08/17 16:29 05/03/17 16:33 Apixaban (Eliquis) 5 mg Q12HR ORAL 04/30/17 21:00 05/30/17 20:59 05/04/17 08:57 Atorvastatin Calcium (Lipitor) 80 mg BEDTIME ORAL 04/30/17 21:00 05/30/17 20:59 05/03/17 21:29 Aztreonam/Sodium Chloride (Azactam/Sodium Chloride) 55 ml @ 110 mls/hr EVERY 8 HOURS IVPB 04/30/17 06:00 05/07/17 05:59 05/04/17 06:01 Carvedilol (Coreg) 6.25 mg EVERY 12 HOURS ORAL 04/30/17 21:00 05/30/17 20:59 05/04/17 08:56 Digoxin (Lanoxin) 0.125 mg DAILY ORAL 04/30/17 13:00 05/30/17 12:59 05/04/17 08:58 Finasteride (Proscar) 5 mg DAILY ORAL 05/01/17 09:00 05/31/17 08:59 05/04/17 09:09 Furosemide (Lasix) 40 mg EVERY 12 HOURS IV 05/04/17 09:00 06/03/17 08:59 05/04/17 09:12 Levothyroxine Sodium (Synthroid) 150 mcg ACBREAKFAST ORAL 05/01/17 06:30 05/31/17 06:29 05/04/17 06:00 Lisinopril (Zestril) 10 mg DAILY ORAL 05/01/17 09:00 05/31/17 08:59 05/04/17 08:59 Nitroglycerin (Ntg) 0.4 mg Q5M PRN SL Prn Chest Pain 04/29/17 22:45 05/29/17 22:44 Ondansetron HCl (Zofran) 4 mg Q6H PRN IVP Nausea & Vomiting 04/29/17 22:45 05/29/17 22:44 Polyethylene Glycol (Miralax) 17 gm DAILYPRN PRN ORAL Constipation 04/29/17 22:45 05/29/17 22:44 05/03/17 08:43 Promethazine HCl/ Codeine (Phenergan with Codeine) 5 ml Q4H PRN ORAL For Cough 04/29/17 22:45 05/29/17 22:44 Quetiapine Fumarate (SEROquel) 25 mg BEDTIME ORAL 05/02/17 21:00 06/01/17 20:59 05/03/17 21:29 Sennosides (Senokot) 8.6 mg DAILY ORAL 05/01/17 09:00 05/31/17 08:59 05/04/17 08:59 Tamsulosin HCl (Flomax) 0.4 mg DAILY ORAL 05/01/17 09:00 05/31/17 08:59 05/04/17 08:56 Temazepam 15 mg 15 mg HSPRN PRN ORAL Insomnia 04/29/17 22:45 05/06/17 22:44 Vancomycin HCl 1 ea 1 ea DAILY PRN MISC Per rx protocol 04/29/17 22:45 05/29/17 22:44 Vancomycin HCl/ Dextrose (Vancomycin/D5W) 325 ml @ 162.5 mls/ hr Q12H IVPB 04/30/17 02:00 05/05/17 01:59 05/04/17 02:05 Corrine Deal NP (Vanchtein) May 04, 2017 14:25
[2017-05-04] MEDS ORDERED: LASIX20 M1 ORAL (14:26)
[2017-05-04 16:00] VITALS: BP 100/56
--- NOTE | 2017-05-04 19:24 | Infectious Diseases Prog Note ---
Assessment/Plan Assessment/Plan A: The patient is a 71-year-old male with Sepsis, SP pneumonia cxray : bilateral interstitial disease. Pulmonary edema. SP SOB +ve Ucx :Ludy : colonizer no need to Rx Cellulitis of lower Ext improved U Legionella : Neg History of CVA. Dementia. History of urinary obstruction. History of Ashraf catheter placement, PLAN: continue the patient on aztreonam and vancomycin d# 5 , upon DC will change Ab Rx to Clinda and Levaquin x 5 days to complete the course ( Rx in chart ) Monitor CBC. Monitor BMP Monitor cultures, blood Monitor chest x-ray Subjective Constitutional: Denies: anorexia, chills, drenching sweats, fatigue, fever, no symptoms, other Allergies: Coded Allergies: IODINE (Verified Allergy, Unknown, 04/29/17) PENICILLINS (Verified Allergy, Unknown, 04/29/17) Objective Vital Signs Last 24 Hour Vital Signs Date Time Temp Pulse Resp B/P Pulse Ox O2 Delivery O2 Flow Rate FiO2 05/04/17 16:00 97.9 74 18 100/56 Nasal Cannula 2.0 95 05/04/17 15:13 86 05/04/17 12:00 80 18 103/66 Nasal Cannula 2.0 93 05/04/17 11:50 78 05/04/17 08:59 110/53 05/04/17 08:58 71 05/04/17 08:56 59 110/53 05/04/17 08:00 97.7 59 18 110/53 Nasal Cannula 2.0 95 05/04/17 07:39 85 05/04/17 06:56 Nasal Cannula 3.0 05/04/17 06:55 95 Nasal Cannula 3.0 05/04/17 06:54 68 20 Nasal Cannula 3.0 05/04/17 04:00 97.9 74 20 114/68 97 Nasal Cannula 5.0 05/04/17 04:00 73 05/04/17 00:00 86 05/03/17 23:49 98.4 80 20 113/65 99 Room Air 05/03/17 21:29 75 119/65 05/03/17 20:00 90 05/03/17 20:00 98.6 75 22 119/65 95 Nasal Cannula 5.0 Height (Feet): 5 Height (Inches): 10.00 Weight (Pounds): 168 HEENT: anicteric Respiratory/Chest: normal breath sounds Cardiovascular: regular rhythm Abdomen: no organomegaly Microbiology Date/Time Source Procedure Growth Status 05/03/17 04:46 Sputum Gram Stain - Final Resulted 05/03/17 04:46 Sputum Sputum Culture - Preliminary NORMAL UPPER RESPIRATORY SHERRY AT 24 ... Resulted Current Medications Medications (Trade) Dose Ordered Sig/Lakesha Route PRN Reason Start Time Stop Time Status Last Admin Dose Admin Acetaminophen (Tylenol) 650 mg Q4H PRN ORAL Mild Pain/Temp > 100.5 05/04/17 14:45 06/03/17 14:44 Al Hydroxide/Mg Hydroxide (Mylanta II) 30 ml Q6H PRN ORAL dyspepsia 04/29/17 22:45 05/29/17 22:44 Albuterol/ Ipratropium (DuoNeb 0.5-3(2.5)mg/3ml) 3 ml Q4H PRN HHN Shortness of Breath 05/03/17 16:30 05/08/17 16:29 05/03/17 16:33 Apixaban (Eliquis) 5 mg Q12HR ORAL 04/30/17 21:00 05/30/17 20:59 05/04/17 08:57 Atorvastatin Calcium (Lipitor) 80 mg BEDTIME ORAL 04/30/17 21:00 05/30/17 20:59 05/03/17 21:29 Aztreonam/Sodium Chloride (Azactam/Sodium Chloride) 55 ml @ 110 mls/hr EVERY 8 HOURS IVPB 04/30/17 06:00 05/07/17 05:59 05/04/17 14:25 Carvedilol (Coreg) 6.25 mg EVERY 12 HOURS ORAL 04/30/17 21:00 05/30/17 20:59 05/04/17 08:56 Digoxin (Lanoxin) 0.125 mg DAILY ORAL 04/30/17 13:00 05/30/17 12:59 05/04/17 08:58 Finasteride (Proscar) 5 mg DAILY ORAL 05/01/17 09:00 05/31/17 08:59 05/04/17 09:09 Furosemide (Lasix) 40 mg EVERY 12 HOURS IV 05/04/17 09:00 06/03/17 08:59 05/04/17 09:12 Levothyroxine Sodium (Synthroid) 150 mcg ACBREAKFAST ORAL 05/01/17 06:30 05/31/17 06:29 05/04/17 06:00 Lisinopril (Zestril) 10 mg DAILY ORAL 05/01/17 09:00 05/31/17 08:59 05/04/17 08:59 Nitroglycerin (Ntg) 0.4 mg Q5M PRN SL Prn Chest Pain 04/29/17 22:45 05/29/17 22:44 Ondansetron HCl (Zofran) 4 mg Q6H PRN IVP Nausea & Vomiting 04/29/17 22:45 05/29/17 22:44 Polyethylene Glycol (Miralax) 17 gm DAILYPRN PRN ORAL Constipation 04/29/17 22:45 05/29/17 22:44 05/03/17 08:43 Promethazine HCl/ Codeine (Phenergan with Codeine) 5 ml Q4H PRN ORAL For Cough 04/29/17 22:45 05/29/17 22:44 Quetiapine Fumarate (SEROquel) 25 mg BEDTIME ORAL 05/02/17 21:00 06/01/17 20:59 05/03/17 21:29 Sennosides (Senokot) 8.6 mg DAILY ORAL 05/01/17 09:00 05/31/17 08:59 05/04/17 08:59 Tamsulosin HCl (Flomax) 0.4 mg DAILY ORAL 05/01/17 09:00 05/31/17 08:59 05/04/17 08:56 Temazepam 15 mg 15 mg HSPRN PRN ORAL Insomnia 04/29/17 22:45 05/06/17 22:44 Vancomycin HCl 1 ea 1 ea DAILY PRN MISC Per rx protocol 04/29/17 22:45 05/29/17 22:44 Vancomycin HCl/ Dextrose (Vancomycin/D5W) 325 ml @ 162.5 mls/ hr Q12H IVPB 04/30/17 02:00 05/05/17 01:59 05/04/17 16:20 JEFFREY GERARD M.D. May 04, 2017 19:24
[2017-05-04 20:00] VITALS: BP 99/45
--- NOTE | 2017-05-06 08:39 | Diagnostic Imaging Report ---
Indication: Shortness of breath Technique: XRAY CHEST 1 V Comparison: 05/02/17 Findings: Cardiomediastinal silhouette is stable. Left chest pacemaker is seen. Right midlung and bilateral interstitial opacities are present, left greater than right. There is atelectasis in the left base. Osseous structures are stable. Impression: No gross interval change from 05/02/17.
--- NOTE | 2017-05-06 12:59 | Discharge Summary ---
Discharge Summary Hospital Course Date of Admission Apr 29, 2017 at 22:28 Date of Discharge May 04, 2017 at 21:30 Admitting Diagnosis sepsis, hypoxia HPI Naun Fontana is a 71 year old male who was admitted on Apr 29, 2017 at 22:28 for Sepsis,Hypoxia Hospital Course dc summary#[id number] Discharge Medications New Medications: Clindamycin Hcl* (Clindamycin Hcl*) 150 Mg Capsule 300 MG ORAL TID, #15 CAP Furosemide* (Lasix*) 20 Mg Tablet 40 MG ORAL DAILY, #30 TAB Levofloxacin* (Levaquin*) 500 Mg Tablet 750 MG ORAL DAILY, #5 TAB Apixaban (Eliquis) 2.5 Mg Tablet 5 MG ORAL Q12HR, #60 TAB Continued Medications: Acetaminophen* (Tylenol Extra Strength*) 500 Mg Tablet 500 MG ORAL Q6H PRN for Mild Pain/Temp > 100.5, TAB 0 Refills Atorvastatin Calcium* (Lipitor*) 80 Mg Tablet 80 MG ORAL BEDTIME, TAB Bethanechol Chl* (Bethanechol Chloride*) 25 Mg Tablet 25 MG ORAL THREE TIMES A DAY, TAB Carvedilol* (Carvedilol*) 6.25 Mg Tablet 6.25 MG ORAL EVERY 12 HOURS, TAB Digoxin* (Digoxin*) 125 Mcg Tablet 125 MCG ORAL DAILY, TAB Finasteride* (Proscar*) 5 Mg Tablet 5 MG ORAL DAILY, #30 TAB 0 Refills Levothyroxine Sodium* (Levothyroxine Sodium*) 150 Mcg Tablet 150 MCG ORAL DAILY, TAB Take in the morning on an empty stomach, at least 30 minutes before food. Lisinopril* (Zestril*) 10 Mg Tablet 10 MG ORAL DAILY, TAB Magnesium Hydroxide* (Milk Of Magnesia*) 2,400 Mg/10 Ml Oral.susp 30 ML ORAL DAILY, ML Olanzapine* (Zyprexa*) 2.5 Mg Tablet 2.5 MG ORAL DAILY, #30 TAB 0 Refills Quetiapine Fumarate* (Quetiapine Fumarate*) 50 Mg Tablet 25 MG ORAL DAILY, TAB Sennosides (Senokot) 8.6 Mg Tablet 8.6 MG PO, TAB Tamsulosin HCl (Flomax) 0.4 Mg Cap.er.24h 0.4 MG ORAL DAILY, CAP Discontinued Medications: Apixaban (Eliquis) 5 Mg Tablet 5 MG PO, TAB Discharge Condition Upon Discharge: stable Discharge Disposition Patient was discharged to [facility] (01) Discharge Diagnoses: Say (Josechloe),Corrine LEVINE May 06, 2017 12:59
--- NOTE | 2017-05-07 | Discharge Summary 2 SIG ---
DATE OF ADMISSION: 04/29/2017 DATE OF DISCHARGE: 05/04/2017 REASON FOR ADMISSION: 71-year-old male, a resident of assisted living , with a history of atrial fibrillation, coronary artery disease, CVA, pacemaker, dementia, COPD/asthma, and CHF, found to be hypoxic at the facility. He was coughing and had fevers. Pulse oximetry was low at assisted [facility], and he was brought into the emergency department for further evaluation. Workup in the emergency department revealed no leukocytosis, low-grade fever. Urinalysis with possible UTI. Chest x-ray with pulmonary congestion. Possible infiltrates. Lactic acid- 1.3. Troponin negative. EKG revealed atrial fibrillation with stable heart rate. The patient was placed on 4 liters of nasal cannula with pulse oximetry of 95%. The patient was given diuretic, pancultured, and started on empiric antibiotics. Supplemental oxygen provided. He was admitted to telemetry floor for further management. The patient admitted to telemetry for further management. ADMITTING DIAGNOSES: 1. Sepsis. 2. Acute encephalopathy. 3. Aspiration pneumonia. 4. Coronary artery disease. 5. Congestive heart failure. 6. Pacemaker. 7. Atrial fibrillation. 8. Anemia. 9. Dementia. HOSPITAL STAY: The patient was admitted to telemetry floor. Cardiology consult and ID consult was requested. The patient started on empiric antibiotics. The patient was found to have cellulitis of bilateral lower extremities. Blood culture negative. Urine culture revealed Ludy, which was colonized according to ID. The patient was getting empiric antibiotics for pneumonia and cellulitis. Supplemental oxygen and pulmonary toilet provided as needed. Antitussive given as needed. Venous duplex of bilateral lower extremity was negative. Antibiotic changed to oral route as per ID recommendation upon discharge. Initial chest x-ray revealed CHF and possible pneumonia. Followup chest x-ray revealed stable bilateral congestive changes. The patient was on diuresis. Acid Loader followed. Diuresis was increased to b.i.d. Echocardiogram revealed ejection fraction of 30% to 35%. Right ventricular systolic pressure of 57% consistent with moderate pulmonary hypertension. Renal parameters and electrolytes were closely monitored. CHF was managed medically with beta-marisel, digoxin, HAMIDA inhibitor, and diuretic. According to dye machine operator, the patient has permanent atrial fibrillation, rate controlled with beta-marisel and digoxin. Anticoagulation was resumed with Eliquis since renal insufficiency resolved. Per cardio recommendation, he recommended to consider cardiac catheterization. ProBNP was trending down. The patient was supposed to be discharged on 05/03/2017; however, he still was hypoxemic. Dose of diuresis increased. Medical management continued for afterload and preload reduction. According to dye machine operator, the patient previously did not have cardiac catheterization for several reasons, one of which was renal insufficiency. Since now he has normal renal function, the patient should reconsider in the near future to do cardiac catheterization, which was discussed with Dr. Cole and discussed with Dr. Murphy. Anemia workup revealed low iron. Hemoglobin and hematocrit remained in the baseline. Noted mild elevation in CEA. Recommended colonoscopy as outpatient. Psychiatrist followed. The patient is on Seroquel and Zyprexa. Bowel regimen instituted. Wound care provided as per wound care nurse recommendation. The patient was working with Physical Therapy. The patient declines SNF placement. The patient insisted on being transferred to assisted living. The patient needs supplemental oxygen for home use as well as the home health that was arranged. Oxygen saturation on room air was only 88% with walking. Portable oxygen was arranged by home health care case manager along with home health. The patient was stable for discharge. DISCHARGE DIAGNOSES: 1. Acute on chronic systolic and diastolic congestive heart failure exacerbation. 2. Acute encephalopathy. 3. Sepsis. 4. Aspiration pneumonia. 5. Cellulitis of lower extremities. 6. Chronic obstructive pulmonary disease. 7. Cardiomyopathy. 8. Pacemaker. 9. Atrial fibrillation. 10. Moderate pulmonary hypertension. 11. History of cerebrovascular accident. 12. Anemia. 13. Renal insufficiency, resolved. 14. Delirium secondary to general medical condition. 15. Major depressive disorder. 16. Dementia. 17. Left lower extremity and knee wound, present on admission. 18. Benign prostatic hyperplasia. DISCHARGE MEDICATIONS: See medication reconciliation list. DISCHARGE INSTRUCTIONS: The patient discharged to assisted living with home health to follow. Supplemental oxygen was arranged. Follow up with the primary medical doctor. Follow up with the dye machine operator. Consider cardiac catheterization in the near future. Alden Alvarez M.D. Corrine VillalobosCaren osei DR: SOHEILA JOB#: [id number] CC: [id number]
== END 2017-05-04 21:30 | disposition home health service (06) | DRG 871 ==
LOC: EDBD 20:58 → EMR 21:25 → 2E 22:28 → EDBEDREQ 04-30 00:06 → 2E 04-30 01:06
DX: A41.9 Sepsis, unspecified organism (principal); I50.43 Acute on chronic combined systolic (congestive) and diastolic (congestive) heart failure; J69.0 Pneumonitis due to inhalation of food and vomit; G93.40 Encephalopathy, unspecified; F05 Delirium due to known physiological condition; I42.9 Cardiomyopathy, unspecified; F03.90 Unspecified dementia, unspecified severity, without behavioral disturbance, psychotic disturbance, mood disturbance, and anxiety; D64.9 Anemia, unspecified; S81.002A Unspecified open wound, left knee, initial encounter; L03.116 Cellulitis of left lower limb; L03.115 Cellulitis of right lower limb; J44.9 Chronic obstructive pulmonary disease, unspecified; Z95.0 Presence of cardiac pacemaker; I48.91 Unspecified atrial fibrillation; I27.2 Other secondary pulmonary hypertension; I25.10 Atherosclerotic heart disease of native coronary artery without angina pectoris; Z86.73 Personal history of transient ischemic attack (TIA), and cerebral infarction without residual deficits; F32.9 Major depressive disorder, single episode, unspecified; N40.0 Benign prostatic hyperplasia without lower urinary tract symptoms; R09.02 Hypoxemia; Z88.0 Allergy status to penicillin; Z88.8 Allergy status to other drugs, medicaments and biological substances; I25.5 Ischemic cardiomyopathy; Z79.01 Long term (current) use of anticoagulants; X58.XXXA Exposure to other specified factors, initial encounter
CPT/HCPCS: 36415; 71010; 80048; 80053; 80069; 80162; 80202; 81003; 82164; 82378; 82550; 82553; 82607; 82746; 82962; 83540; 83550; 83605; 83615; 83690; 83880; 84484; 85007; 85025; 85044; 85060; 85610; 85651; 85730; 87040; 87070; 87081; 87086; 87205; 93005; 93306; 93970; 94640; 94664; 94760; J7620

== ENCOUNTER 2017-05-04 22:44 | Emergency (ER) | payer BC ==
[~2017-05-04] VITALS: Ht 177.8 cm; Wt 90.7 kg
[~2017-05-04 22:44] MED LIST: ATORVASTATIN CA80 MG ORAL; BETHANECHOL CHL25 MG ORAL; CARVEDILOL6.25 MG ORAL; CLINDAMYCIN HC150 MG ORAL; DIGOXIN125 MCG ORAL; DUONEB 0.5-3(2.53 ML HHN; ELIQUIS2.5 MG ORAL; ELIQUIS5 MG PO; FLOMAX0.4 MG ORAL; IBUPROFEN600 MG ORAL; LASIX20 M1 ORAL; LEVAQUIN500 MG ORAL; LEVOTHYROXINE150 MCG ORAL; MILK OF MA2400 MG/10 ORAL; PROSCAR5 MG ORAL; QUETIAPINE FUMA50 MG ORAL; SENOKOT8.6 MG PO; SPIRIVA18 MCG INH; TYLENOL EXTRA500 MG ORAL; ZESTRIL10 M1 ORAL; ZYPREXA2.5 MG ORAL
--- NOTE | 2017-05-05 00:32 | Emergency Room Report ---
History of Present Illness General Chief Complaint: General Complaint Source: Patient, Family Member, Medical Record, EMS, PMD Present Illness HPI This is a 71-year-old male with a history of ischemic cardiomyopathy. His ejection fraction is about 23%. He also has history of atrial ablation on . He was admitted here for CHF and sepsis/UTI. He was sent to a senior care but it was an assisted-living facility. He was on oxygen. There were unable to take care of the oxygen at rest or status. He was sent back here immediately. Patient denies any other complaint. He has some dementia so history is limited. I spoke with his daughter over the phone. There was a plan to send the patient to [facility]. Allergies: Coded Allergies: IODINE (Verified Allergy, Unknown, 04/29/17) PENICILLINS (Verified Allergy, Unknown, 04/29/17) Patient History Past Medical History: see triage record, old chart reviewed, CAD, CHF, AFib Past Surgical History: pacemaker, other Pertinent Family History: none Social History: Denies: smoking Immunizations: other Reviewed Nursing Documentation: PMH: Agreed, PSxH: Agreed Nursing Documentation-PMH Past Medical History: No History, Except For Hx Cardiac Problems: Yes Hx Gastrointestinal Problems: Yes - Metabolic encephalopathy Hx Neurological Problems: Yes Hx Cerebrovascular Accident: Yes Hx Dementia: Yes Review of Systems Eye: Denies: blurred vision, eye pain ENT: Denies: ear pain, nose congestion, throat swelling Respiratory: Reports: shortness of breath, Denies: cough Cardiovascular: Denies: chest pain, palpitations Gastrointestinal: Denies: abdominal pain, diarrhea, nausea, vomiting Musculoskeletal: Denies: back pain, joint pain Skin: Denies: rash Neurological: Denies: headache, numbness Endocrine: Denies: increased thirst, increased urine Hematologic/Lymphatic: Denies: easy bruising All Other Systems: negative except mentioned in HPI Physical Exam Vital Signs Date Time Temp Pulse Resp B/P Pulse Ox O2 Delivery O2 Flow Rate FiO2 05/04/17 22:45 97.9 66 18 112/68 97 Nasal Cannula vitals unremarkable Sp02 EP Interpretation: reviewed, normal General Appearance: no apparent distress, alert, Chronically Ill Head: normocephalic, atraumatic Eyes: bilateral eye EOMI, bilateral eye PERRL ENT: hearing grossly normal, normal pharynx Neck: full range of motion, supple, no meningismus Respiratory: chest non-tender, normal breath sounds, rales - Slight rales Cardiovascular #1: no murmur, irregularly irregular Gastrointestinal: normal bowel sounds, non tender, no mass, no organomegaly, no bruit, non-distended Musculoskeletal: back normal, normal range of motion, other - Bandage over left knee Neurologic: alert Psychiatric: mood/affect normal Skin: warm/dry Medical Decision Making Diagnostic Impression: Primary Impression: CHF exacerbation Qualified Codes: I50.9 - Heart failure, unspecified Additional Impressions: Cardiomyopathy Qualified Codes: I42.9 - Cardiomyopathy, unspecified Dementia Qualified Codes: G30.1 - Alzheimer's disease with late onset; F02.80 - Dementia in other diseases classified elsewhere without behavioral disturbance ER Course Patient presents with acute on chronic respiratory failure with exacerbation of CHF. No evidence of ACS, PE, pneumonia to name a few. I discussed the case with Dr. Murphy, his warehouse lead. He said the patient for transfer to [facility]. I also discussed the case with Dr. Membreno, his PCP, to let her know of the plan. Family is agreeable to the transfer to [facility]. Laboratory Tests Test 05/05/17 00:15 White Blood Count 8.9 K/UL (4.8-10.8) Red Blood Count 3.49 M/UL (4.70-6.10) L Hemoglobin 10.6 G/DL (14.2-18.0) L Hematocrit 31.6 % (42.0-52.0) L Mean Corpuscular Volume 90 FL (80-99) Mean Corpuscular Hemoglobin 30.2 PG (27.0-31.0) Mean Corpuscular Hemoglobin Concent 33.4 G/DL (32.0-36.0) Red Cell Distribution Width 15.0 % (11.6-14.8) H Platelet Count 313 K/UL (150-450) Mean Platelet Volume 5.3 FL (6.5-10.1) L Neutrophils (%) (Auto) 65.0 % (45.0-75.0) Lymphocytes (%) (Auto) 10.4 % (20.0-45.0) L Monocytes (%) (Auto) 17.2 % (1.0-10.0) H Eosinophils (%) (Auto) 5.2 % (0.0-3.0) H Basophils (%) (Auto) 2.3 % (0.0-2.0) H Sodium Level 139 mEQ/L (135-145) Potassium Level 4.3 mEQ/L (3.4-4.9) Chloride Level 92 mEQ/L (98-107) L Carbon Dioxide Level 33 mEQ/L (20-30) H Anion Gap 14 (5-15) Blood Urea Nitrogen 25 mg/dL (7-23) H Creatinine 0.9 mg/dL (0.7-1.2) Estimat Glomerular Filtration Rate mL/min (>60) Glucose Level 113 mg/dL (74-106) H Calcium Level 9.4 mg/dL (8.6-10.2) Total Bilirubin 0.7 mg/dL (0.0-1.2) Aspartate Amino Transf (AST/SGOT) 19 U/L (5-40) Alanine Aminotransferase (ALT/SGPT) 14 U/L (3-41) Alkaline Phosphatase 101 U/L (40-129) Troponin I < 0.30 ng/mL (<=0.30) Pro-B-Type Natriuretic Peptide 3411 pg/mL (0-125) H Total Protein 7.5 g/dL (6.6-8.7) Albumin 3.7 g/dL (3.5-5.2) Globulin 3.8 g/dL Albumin/Globulin Ratio 0.9 (1.0-2.7) L Laboratory Tests Test 05/05/17 00:15 White Blood Count 8.9 K/UL (4.8-10.8) Red Blood Count 3.49 M/UL (4.70-6.10) L Hemoglobin 10.6 G/DL (14.2-18.0) L Hematocrit 31.6 % (42.0-52.0) L Mean Corpuscular Volume 90 FL (80-99) Mean Corpuscular Hemoglobin 30.2 PG (27.0-31.0) Mean Corpuscular Hemoglobin Concent 33.4 G/DL (32.0-36.0) Red Cell Distribution Width 15.0 % (11.6-14.8) H Platelet Count 313 K/UL (150-450) Mean Platelet Volume 5.3 FL (6.5-10.1) L Neutrophils (%) (Auto) 65.0 % (45.0-75.0) Lymphocytes (%) (Auto) 10.4 % (20.0-45.0) L Monocytes (%) (Auto) 17.2 % (1.0-10.0) H Eosinophils (%) (Auto) 5.2 % (0.0-3.0) H Basophils (%) (Auto) 2.3 % (0.0-2.0) H Sodium Level 139 mEQ/L (135-145) Potassium Level 4.3 mEQ/L (3.4-4.9) Chloride Level 92 mEQ/L (98-107) L Carbon Dioxide Level 33 mEQ/L (20-30) H Anion Gap 14 (5-15) Blood Urea Nitrogen 25 mg/dL (7-23) H Creatinine 0.9 mg/dL (0.7-1.2) Estimat Glomerular Filtration Rate mL/min (>60) Glucose Level 113 mg/dL (74-106) H Calcium Level 9.4 mg/dL (8.6-10.2) Total Bilirubin 0.7 mg/dL (0.0-1.2) Aspartate Amino Transf (AST/SGOT) 19 U/L (5-40) Alanine Aminotransferase (ALT/SGPT) 14 U/L (3-41) Alkaline Phosphatase 101 U/L (40-129) Troponin I < 0.30 ng/mL (<=0.30) Pro-B-Type Natriuretic Peptide 3411 pg/mL (0-125) H Total Protein 7.5 g/dL (6.6-8.7) Albumin 3.7 g/dL (3.5-5.2) Globulin 3.8 g/dL Albumin/Globulin Ratio 0.9 (1.0-2.7) L Lab Results Impression labs with elevated BNP EKG Diagnostic Results Rate: normal Rhythm: other - afib ST Segments: no acute changes Rhythm Strip Diag. Results Rhythm Strip Time: 00:31 EP Interpretation: yes Rate: 84 Rhythm: no PVC's, no ectopy, other - afib Chest X-Ray Diagnostic Results Chest X-Ray Ordered: Yes # of Views/Limited/Complete: 1 View Interpretation: no consolidation, no effusion, no acute cardiopulmonary disease , other - cm with vasc congestion Indication: Shortness of Breath Impression: No acute disease Date Electronically Signed: May 05, 2017 Time Electronically Signed: 00:31 Interpreting ER Physician: Nils Newell MD Last Vital Signs Date Time Temp Pulse Resp B/P Pulse Ox O2 Delivery O2 Flow Rate FiO2 05/04/17 22:45 97.9 66 18 112/68 97 Nasal Cannula Status: improved Disposition: XFER SHT-TRM HOSP Condition: Stable Referrals: NOT CHOSEN IPA/,REFERRING (PCP) NILS NEWELL M.D. May 05, 2017 00:32
[2017-05-05 00:39] LABS: TROPONIN I < 0.30 ng/mL (<=0.30)
[2017-05-05 00:40] LABS: ALANINE AMINOTRANSFERASE 14 U/L (3-41); ALBUMIN/GLOBULIN RATIO 0.9 (1.0-2.7); ANION GAP 14 (5-15); ASPARTATE AMINO TRANSFERASE 19 U/L (5-40); CALCIUM 9.4 mg/dL (8.6-10.2); CARBON DIOXIDE 33 mEQ/L (20-30); CHLORIDE 92 mEQ/L (98-107); CREATININE 0.9 mg/dL (0.7-1.2); HEMOLYSIS 29; POTASSIUM 4.3 mEQ/L (3.4-4.9); SODIUM 139 mEQ/L (135-145); TOTAL PROTEIN 7.5 g/dL (6.6-8.7)
[2017-05-05 00:41] LABS: BASOPHILS % (AUTO) 2.3 % (0.0-2.0); EOSINOPHILS % (AUTO) 5.2 % (0.0-3.0); LYMPHOCYTES % (AUTO) 10.4 % (20.0-45.0); MEAN CORPUSCULAR HEMOGLOBIN 30.2 PG (27.0-31.0); MEAN CORPUSCULAR HGB CONC 33.4 G/DL (32.0-36.0); MEAN CORPUSCULAR VOLUME 90 FL (80-99); MEAN PLATELET VOLUME 5.3 FL (6.5-10.1); MONOCYTES % (AUTO) 17.2 % (1.0-10.0); PLATELET COUNT 313 K/UL (150-450); RED BLOOD COUNT 3.49 M/UL (4.70-6.10); WHITE BLOOD COUNT 8.9 K/UL (4.8-10.8)
[2017-05-05 02:50] VITALS: BP 126/76
[2017-05-05 03:34] VITALS: BP 126/76
--- NOTE | 2017-05-05 09:23 | Diagnostic Imaging Report ---
Indication: Shortness of breath Technique: XRAY CHEST 1 V Comparison: 05/03/17 Findings: Cardiomediastinal silhouette is stable. There is a left chest pacemaker. Bilateral interstitial opacities are again noted. Osseous structures are stable. Impression: Mild bilateral interstitial edema/infiltrates.
== END 2017-05-05 03:38 | disposition short-term general hospital (02) ==
LOC: EDBD 22:44 → EMR 23:24
DX: I50.9 Heart failure, unspecified (principal); I25.5 Ischemic cardiomyopathy; J96.20 Acute and chronic respiratory failure, unspecified whether with hypoxia or hypercapnia; I48.91 Unspecified atrial fibrillation; Z86.73 Personal history of transient ischemic attack (TIA), and cerebral infarction without residual deficits; F03.90 Unspecified dementia, unspecified severity, without behavioral disturbance, psychotic disturbance, mood disturbance, and anxiety
CPT/HCPCS: 36415; 71010; 80053; 83880; 84484; 85025; 93005; 96374; 99285; J1940